=== PATIENT | female | born 1950 | race Hispanic/Latino ===

== ENCOUNTER 2018-02-21 07:11 | Emergency (ER) | payer OTHER ==
--- OUTSIDE RECORDS SUMMARY | 2018-02-21 07:12 | XMS REPORT ---
:1950 [facility] Address [address] [place] [address] Dr. Kaminski [address] [place] [address] Care Team Providers Name Role Phone MICHELE WOOD JR Primary Care Provider Unavailable MICHELE WOOD JR, M.D. Unavailable Unavailable Problems This patient has no known problems. Allergies, Adverse Reactions, Alerts This patient has no known allergies or adverse reactions. Medications This patient has no known medications.
--- OUTSIDE RECORDS SUMMARY | 2018-02-21 07:12 | XMS REPORT | Clinical Summary ---
:1950 Author Organization [facility] Address [address] [place] [address] Care Team Providers Name Role Phone Jonah Eisenberg MD Primary Care Provider Allergies No Known Allergies Medications Medication Sig Dispensed Refills Start Date End Date Status ALPRAZolam (XANAX) as needed. 0 06/25/2017 Active 0.5 MG tablet levothyroxine 0 05/27/2017 Active (SYNTHROID, LEVOXYL) 50 mcg tablet zolpidem (AMBIEN) 5 0 06/11/2017 Active MG tablet venlafaxine XR Take 150 mg 0 Active (EFFEXOR-XR) 150 MG by mouth 2 24 hr capsule (two) times a day. ziprasidone (GEODON) Take 20 mg 0 02/06/2018 Discontinued 20 MG capsule by mouth 2 (two) times a day with meals. Active Problems No known active problems Encounters Date Type Specialty Care Team Description 02/06/2018 Office Visit Neurology Enoch Stratton MD Tremor (Primary Dx); Drug-induced movement disorder; Extrapyramidal movement disorder, drug-induced; Hypertension, unspecified type 09/25/2017 Office Visit Orthopedic Surgery Giovanny Avila Strain of left rotator MD Mirna cuff capsule, initial encounter (Primary Dx) 07/29/2017 Hospital Encounter Radiology Giovanny Avila Acute pain of left MD Mirna shoulder 06/26/2017 Office Visit Orthopedic Surgery Giovanny Avila Strain of left rotator cuff capsule, initial encounter (Primary Dx); MD Mirna Acute pain of left knee; Acute pain of left shoulder 06/13/2017 Abstract Orthopedic Surgery Giovanny Avila MD 06/11/2017 Abstract Orthopedic Surgery Giovanny Avila MD after 02/20/2017 Social History Tobacco Use Types Packs/Day Years Used Date Never Smoker Smokeless Tobacco: Never Used Alcohol Use Drinks/Week oz/Week Comments No Alcohol Habits Answer Date Recorded How often do you have a drink containing alcohol? Never 02/06/2018 How many drinks containing alcohol do you have on a typical Not asked day when you are drinking? How often do you have six or more drinks on one occasion? Not asked Sex Assigned at Date Recorded Not on file Job Start Date Occupation Industry Not on file Not on file Not on file Travel History Travel Start Travel End No recent travel history available. 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 Plan of Treatment Date Type Specialty Care Team Description 04/09/2018 Office Visit Neurology Enoch Stratton MD [address] [facility] [address] [place] [address] [phone] Health Maintenance Due Date Last Done Comments CERVICAL CANCER SCREENING 1973 BREAST CANCER SCREENING 2002 COLON CANCER SCREENING 2002 SHINGLES VACCINES (1 of 2) 2002 PNEUMOCOCCAL POLYSACCHARIDE VACCINE AGE 65 AND OVER 2017 PNEUMOCOCCAL-13 2017 INFLUENZA VACCINE 09/25/2017 Procedures Procedure Name Priority Date/Time Associated Diagnosis Comments MRI SHOULDER WO Routine 07/29/2017 3:25 PM Acute pain of left Results for this CONTRAST LEFT CDT shoulder procedure are in the results section. XR SHOULDER 2+ VW Routine 06/26/2017 1:49 PM Acute pain of left Results for this LEFT CDT knee procedure are in the results section. after 02/20/2017 Results MRI Shoulder Wo Contrast Left (07/29/2017 3:25 PM CDT) Narrative Performed At EXAMINATION:MRI SHOULDER WO CONTRAST LEFT HM [facility] CLINICAL HISTORY:M25.512 Pain in left shoulder, SHOULDER PAINPRIOR ARTHROPLASTYROTATOR CUFF TEAR SUSPECTEDXRAY NONDIAGNOSTIC TECHNIQUE:Multiplanar multisequence MR imaging of the shoulder was performed without contrast. COMPARISON:Left shoulder radiographs dated 06/26/2017 FINDINGS: 1. Rotator cuff: Diffuse rotator cuff tendinopathy which appears diffusely attenuated at the level of the footprint. There is a high-grade near full- thickness tear of the entirety of the supraspinatus footprint with with multifocal sites of full-thickness perforation. At the sites of full-thickness perforation. The torn articular surface fibers are retracted medially from the footprint by approximately 1 cm. There is partial thickness articular tearing extending into the anterior infraspinatus footprint without evidence for full-thickness component. 2. Bursa: Marked subacromial subdeltoid bursitis. 3. Biceps tendon: Extra-articular dislocation of the biceps tendon from the bicipital groove with a split tear of the proximal vertical segment. There is no evidence of a high-grade some scattered tear. The horizontal intra-articular segment is partially torn. 4. Labrum: Degenerative nondisplaced posterosuperior labral tear. 5. Acromioclavicular joint: Type II acromion process. Moderate acromioclavicular osteoarthrosis. 6. Glenohumeral joint: Intact. Satisfactory alignment. Osseous glenoid intact. 7. Articular cartilage: Mild glenohumeral osteoarthrosis without evidence of a focal site of grade IV chondromalacia. 8. Joint Fluid:Small joint effusion. Mild synovitis. 9. Bone marrow: No suspicious marrow edema is seen. No evidence of pathologic marrow replacement. There is some cystic change in the lesser tuberosity. 10. Soft tissues: No significant supraspinatus atrophy. There is fatty replacement and atrophy of teres minor. IMPRESSION: 1.Diffusely attenuated supraspinatus footprint involving the entirety of the supraspinatus with with multifocal sites of full-thickness perforation and associated severe subacromial subdeltoid bursitis. 2.Complete dislocation of the biceps tendon from the bicipital groove with a split tear of the distal horizontal segment and proximal vertical segment with associated extra-articular tenosynovitis. 3.Subscapularis tendinopathy with narrowing of the coracohumeral interval and cystic change of the lesser tuberosity suggestive of subcoracoid impingement. 4.Degenerative nondisplaced posterosuperior labral tear. 5.Additional findings as above. [id number] Procedure Note Hm Interface, Radiology Results Incoming - 07/29/2017 4:16 PM CDT EXAMINATION: MRI SHOULDER WO CONTRAST LEFT CLINICAL HISTORY: M25.512 Pain in left shoulder, SHOULDER PAIN PRIOR ARTHROPLASTY ROTATOR CUFF TEAR SUSPECTED XRAY NONDIAGNOSTIC TECHNIQUE: Multiplanar multisequence MR imaging of the shoulder was performed without contrast. COMPARISON: Left shoulder radiographs dated 06/26/2017 FINDINGS: 1. Rotator cuff: Diffuse rotator cuff tendinopathy which appears diffusely attenuated at the level of the footprint. There is a high-grade near full- thickness tear of the entirety of the supraspinatus footprint with with multifocal sites of full-thickness perforation. At the sites of full-thickness perforation. The torn articular surface fibers are retracted medially from the footprint by approximately 1 cm. There is partial thickness articular tearing extending into the anterior infraspinatus footprint without evidence for full-thickness component. 2. Bursa: Marked subacromial subdeltoid bursitis. 3. Biceps tendon: Extra-articular dislocation of the biceps tendon from the bicipital groove with a split tear of the proximal vertical segment. There is no evidence of a high-grade some scattered tear. The horizontal intra-articular segment is partially torn. 4. Labrum: Degenerative nondisplaced posterosuperior labral tear. 5. Acromioclavicular joint: Type II acromion process. Moderate acromioclavicular osteoarthrosis. 6. Glenohumeral joint: Intact. Satisfactory alignment. Osseous glenoid intact. 7. Articular cartilage: Mild glenohumeral osteoarthrosis without evidence of a focal site of grade IV chondromalacia. 8. Joint Fluid:Small joint effusion. Mild synovitis. 9. Bone marrow: No suspicious marrow edema is seen. No evidence of pathologic marrow replacement. There is some cystic change in the lesser tuberosity. 10. Soft tissues: No significant supraspinatus atrophy. There is fatty replacement and atrophy of teres minor. IMPRESSION: 1. Diffusely attenuated supraspinatus footprint involving the entirety of the supraspinatus with with multifocal sites of full-thickness perforation and associated severe subacromial subdeltoid bursitis. 2. Complete dislocation of the biceps tendon from the bicipital groove with a split tear of the distal horizontal segment and proximal vertical segment with associated extra-articular tenosynovitis. 3. Subscapularis tendinopathy with narrowing of the coracohumeral interval and cystic change of the lesser tuberosity suggestive of subcoracoid impingement. 4. Degenerative nondisplaced posterosuperior labral tear. 5. Additional findings as above. [id number] Performing Organization Address City/[facility] Phone Number [facility] [address] [place] [address] XR Shoulder 2+ Vw Left (06/26/2017 1:49 PM CDT) Narrative Performed At No jose or soft tissue abnormality [employer] Performing Organization Address [facility] Phone Number [facility] [address] [place] [address] after 02/20/2017 Insurance Payer Benefit Plan / Group Subscriber ID Type Phone Address [facility] xxxxxxxxx O Advance Directives Patient has advance care planning documents on file. For more information, please contact:Rasheed Wy[address] [place] [phone]
--- NOTE | 2018-02-21 07:47 | EDPHYS ---
Physician Documentation [facility] Name: Luan Echols Age: 67 yrs Sex: Female : 1950 Arrival Date: 02/21/2018 Time: 07:15 Bed 14 Private MD: Jonah Eisenberg ED Physician Alexandro Cast HPI: 02/21 07:40 This 67 yrs old Female presents to ER via Ambulatory with complaints of cassandra Redness of Eye. 07:40 The patient is experiencing matting or discharge, pain, redness, The patient sustained cassandra Unknown. Onset: The symptoms/episode began/occurred 2 week(s) ago. Duration: the symptoms are continuous. Aggravated by blinking, closing eye, pressure, rubbing, Alleviated by nothing. Associated signs and symptoms: Pertinent positives: None. Severity of symptoms: At their worst the symptoms were mild in the emergency department the symptoms are unchanged. The patient has not experienced similar symptoms in the past. Historical: - Allergies: 07:31 No Known Allergies; ss - Home Meds: 07:31 Effexor XR 150 mg Oral cp24 1 cap once daily [Active]; ss - PMHx: 07:31 Depression; ss - PSHx: 07:31 None; ss - Immunization history:: Adult Immunizations up to date. - Social history:: Smoking status: Patient/guardian denies using tobacco. - Ebola Screening: : Patient denies exposure to infectious person Patient denies travel to an Ebola-affected area in the 21 days before illness onset. - Family history:: not pertinent. ROS: 07:40 Constitutional: Negative for fever, chills, and weight loss, ENT: Negative for injury, cassandra pain, and discharge, Neck: Negative for injury, pain, and swelling, Cardiovascular: Negative for chest pain, palpitations, and edema, Respiratory: Negative for shortness of breath, cough, wheezing, and pleuritic chest pain, Abdomen/GI: Negative for abdominal pain, nausea, vomiting, diarrhea, and constipation, Back: Negative for injury and pain, MS/Extremity: Negative for injury and deformity, Skin: Negative for injury, rash, and discoloration, Neuro: Negative for headache, weakness, numbness, tingling, and seizure, Psych: Negative for depression, anxiety, suicide ideation, homicidal ideation, and hallucinations, Allergy/Immunology: Negative for hives, rash, and allergies, Endocrine: Negative for neck swelling, polydipsia, polyuria, polyphagia, and marked weight changes, Hematologic/Lymphatic: Negative for swollen nodes, abnormal bleeding, and unusual bruising. Exam: 07:40 Constitutional: This is a well developed, well nourished patient who is awake, alert, cassandra and in no acute distress. Head/Face: Normocephalic, atraumatic. ENT: Nares patent. No nasal discharge, no septal abnormalities noted. Tympanic membranes are normal and external auditory canals are clear. Oropharynx with no redness, swelling, or masses, exudates, or evidence of obstruction, uvula midline. Mucous membranes moist. Neck: Trachea midline, no thyromegaly or masses palpated, and no cervical lymphadenopathy. Supple, full range of motion without nuchal rigidity, or vertebral point tenderness. No Meningismus. Chest/axilla: Normal chest wall appearance and motion. Nontender with no deformity. No lesions are appreciated. Cardiovascular: Regular rate and rhythm with a normal S1 and S2. No gallops, murmurs, or rubs. Normal PMI, no JVD. No pulse deficits. Respiratory: Lungs have equal breath sounds bilaterally, clear to auscultation and percussion. No rales, rhonchi or wheezes noted. No increased work of breathing, no retractions or nasal flaring. Abdomen/GI: Soft, non-tender, with normal bowel sounds. No distension or tympany. No guarding or rebound. No evidence of tenderness throughout. Back: No spinal tenderness. No costovertebral tenderness. Full range of motion. Skin: Warm, dry with normal turgor. Normal color with no rashes, no lesions, and no evidence of cellulitis. MS/ Extremity: Pulses equal, no cyanosis. Neurovascular intact. Full, normal range of motion. Neuro: Awake and alert, GCS 15, oriented to person, place, time, and situation. Cranial nerves II-XII grossly intact. Motor strength 5/5 in all extremities. Sensory grossly intact. Cerebellar exam normal. Normal gait. Psych: Awake, alert, with orientation to person, place and time. Behavior, mood, and affect are within normal limits. 07:40 Eyes: Periorbital structures: appear normal, no acute changes, cellulitis, is not appreciated, erythema, is not appreciated, swelling, is not appreciated, Pupils: no acute changes, equal, round, and reactive to light and accomodation, Extraocular movements: no acute changes, Conjunctiva: injected, Corneas: are normal, no acute changes, abrasion, is not appreciated, Anterior chamber: normal, Lids and lashes: mostly removed. Vital Signs: 07:31 BP 175 / 105; Pulse 77; Resp 16; Temp 97.8(TE); Pulse Ox 98% on R/A; Weight 47.63 kg; ss Height 4 ft. 11 in. (149.86 cm); Pain 5/10; 08:12 BP 169 / 87; Pulse 74; Resp 18; Temp 97.5; Pulse Ox 99% on R/A; ph 07:31 Body Mass Index 21.21 (47.63 kg, 149.86 cm) ss MDM: 07:32 Patient medically screened. [facility] 07:44 Data reviewed: vital signs, nurses notes. [facility] Administered Medications: 08:00 Drug: Maxitrol 2 drops Route: Ophthalmic; Site: right eye; ph 08:12 Follow up: Response: No adverse reaction ph Disposition: 02/21/18 07:47 Discharged to Home. Impression: Conjunctivitis. - Condition is Stable. - Discharge Instructions: Allergic Conjunctivitis, Adult, Allergic Conjunctivitis, Knso-uk-Mssk. - Prescriptions for Maxitrol 3.5mg/mL- 10,000 unit/mL-0.1 % Ophthalmic drops,suspension - instill 1 drop by OPHTHALMIC route every 3-4 hours; 10 milliliter. - Medication Reconciliation Form, Thank You Letter, Antibiotic Education, Prescription Opioid Use form. - Follow up: Jonah Eisenberg MD; When: 2 - 3 days; Reason: Recheck today's complaints, Continuance of care, Re-evaluation by your physician. - Problem is new. - Symptoms have improved. Signatures: Alexandro Cast MD MD cha Smirch, Shelby RN RN Marissa Landry RN RN ph Corrections: (The following items were deleted from the chart) 08:13 07:47 02/21/2018 07:47 Discharged to Home. Impression: Conjunctivitis. Condition is ph Stable. Forms are Medication Reconciliation Form, Thank You Letter, Antibiotic Education, Prescription Opioid Use. Follow up: Jonah Eisenberg; When: 2 - 3 days; Reason: Recheck today's complaints, Continuance of care, Re-evaluation by your physician. Problem is new. Symptoms have improved. cassandra
--- NOTE | 2018-02-21 07:47 | ER ---
Nurse's Notes [facility] Name: Luan Echols Age: 67 yrs Sex: Female : 1950 Arrival Date: 02/21/2018 Time: 07:15 Bed 14 Private MD: Jonah Eisenberg Diagnosis: Conjunctivitis Presentation: 02/21 07:17 Presenting complaint: Patient states: redness to L eye x 1 day. Woke up this morning ss with eye matted shut with purulent drainage. Pt reports that she typically gets false eyelashes and had a hard time removing them. Transition of care: patient was not received from another setting of care. Onset of symptoms was February 20, 2018. Risk Assessment: Do you want to hurt yourself or someone else? Patient reports no desire to harm self or others. Initial Sepsis Screen: Does the patient meet any 2 criteria? No. Patient's initial sepsis screen is negative. Does the patient have a suspected source of infection? No. Patient's initial sepsis screen is negative. Care prior to arrival: None. 07:17 Method Of Arrival: Ambulatory ss 07:17 Acuity: MAGDA 5 ss Historical: - Allergies: 07:31 No Known Allergies; ss - Home Meds: 07:31 Effexor XR 150 mg Oral cp24 1 cap once daily [Active]; ss - PMHx: 07:31 Depression; ss - PSHx: 07:31 None; ss - Immunization history:: Adult Immunizations up to date. - Social history:: Smoking status: Patient/guardian denies using tobacco. - Ebola Screening: : Patient denies exposure to infectious person Patient denies travel to an Ebola-affected area in the 21 days before illness onset. - Family history:: not pertinent. Screenin:34 Abuse screen: Denies threats or abuse. Denies injuries from another. Nutritional ss screening: No deficits noted. Tuberculosis screening: No symptoms or risk factors identified. Never had TB. Fall Risk None identified. Assessment: 07:34 General: Appears in no apparent distress. comfortable, Behavior is calm, cooperative. ss Pain: Complains of pain in left eye Pain currently is 5 out of 10 on a pain scale. Quality of pain is described as "like little pin pricks." Pain began yesterday Is continuous. Neuro: Level of Consciousness is awake, alert, obeys commands, Oriented to person, place, time, situation, Speech is normal. Cardiovascular: Capillary refill < 3 seconds is brisk in bilateral fingers. Respiratory: Airway is patent Respiratory effort is even, unlabored. EENT: Eyes are tearing on outer aspect of conjuctiva of left eye with exudate noted from inner aspect of conjunctiva of left eye Sclera/Cornea are reddened in outer aspect of conjuctiva of left eye and inner aspect of conjunctiva of left eye Nares are clear Oral mucosa is moist. Throat is clear. Derm: Skin is intact, is healthy with good turgor, Skin is dry, Skin is pink, warm \\T\\ dry. normal. Musculoskeletal: Circulation, motion, and sensation intact. Range of motion: intact in all extremities, Swelling absent. Vital Signs: 07:31 BP 175 / 105; Pulse 77; Resp 16; Temp 97.8(TE); Pulse Ox 98% on R/A; Weight 47.63 kg; Height 4 ft. 11 in. (149.86 cm); Pain 5/10; 08:12 BP 169 / 87; Pulse 74; Resp 18; Temp 97.5; Pulse Ox 99% on R/A; ph 07:31 Body Mass Index 21.21 (47.63 kg, 149.86 cm) ED Course: 07:15 Patient arrived in ED. mr 07:16 Jonah Eisenberg MD is Private Physician. mr 07:23 Marissa Landry, RN is Primary Nurse. ph 07:30 Triage completed. ss 07:31 Arm band placed on right wrist. ss 07:32 Alexandro Cast MD is Attending Physician. cassandra 07:34 Patient has correct armband on for positive identification. Bed in low position. Call ss light in reach. 07:34 Patient maintains SpO2 saturation greater than 95% on room air. ss 07:46 Jonah Eisenberg MD is Referral Physician. cassandra 07:51 Marissa Landry, RN is Primary Nurse. ph 08:12 No provider procedures requiring assistance completed. Patient did not have IV access ph during this emergency room visit. Administered Medications: 08:00 Drug: Maxitrol 2 drops Route: Ophthalmic; Site: right eye; ph 08:12 Follow up: Response: No adverse reaction ph Outcome: 07:47 Discharge ordered by . cassandra 08:12 Discharged to home ambulatory. ph 08:12 Condition: good 08:12 Discharge instructions given to patient, Instructed on discharge instructions, follow up and referral plans. medication usage, Demonstrated understanding of instructions, follow-up care, medications, Prescriptions given X 1. 08:13 Patient left the ED. ph Signatures: Alexandro Cast MD MD cha Rivera, Mary mr Smirch, Shelby, JAVIER RN Marissa Landry RN RN ph
[2018-02-21] MEDS ORDERED: NEO/POLY/DEX OPTH 5 ML BOT ONE (08:05)
== END 2018-02-21 08:13 | disposition home or self-care (01) ==
LOC: ER 07:11
DX: H10.9 Unspecified conjunctivitis (principal); F32.9 Major depressive disorder, single episode, unspecified; Z79.899 Other long term (current) drug therapy
CPT/HCPCS: 99284

== ENCOUNTER 2018-03-01 12:20 | Emergency (ER) | payer OTHER ==
--- OUTSIDE RECORDS SUMMARY | 2018-03-01 12:23 | XMS REPORT | Clinical Summary ---
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 [address] [place] [address] [phone] Health Maintenance Due Date Last Done Comments [...] procedure are in the results section. after 02/28/2017 Results MRI Shoulder Wo Contrast Left (07/29/2017 [...] posterosuperior labral tear. 5.Additional findings as above. [facility]-[id number] Procedure Note Hm Interface, Radiology Results Incoming [...] labral tear. 5. Additional findings as above. [facility]-[id number] Performing Organization Address City/[facility] Phone Number [employer] [address] [place] [address] XR Shoulder 2+ Vw Left (06/26/2017 1:49 PM CDT) Narrative Performed At No jose or soft tissue abnormality [employer] Performing Organization Address [facility] Phone Number [employer] [address] [place] [address] after 02/28/2017 Insurance Payer Benefit Plan / Group Subscriber ID Type Phone Address [facility] xxxxxxxxx O Advance Directives Patient has advance care planning documents on file. For more information, please contact:Rasheed Key[address] [place] [phone]
--- OUTSIDE RECORDS SUMMARY | 2018-03-01 12:24 | XMS REPORT ---
:1950 [facility] Address [address] [place] [address] Dr. Kaminski [address] [place] [address] Care Team Providers Name Role Phone MICHELE WOOD JR Primary Care Provider Unavailable MICHELE WOOD JR, M.D. Unavailable Unavailable Problems This patient has no known problems. Allergies, Adverse Reactions, Alerts This patient has no known allergies or adverse reactions. Medications This patient has no known medications.
[2018-03-01] MEDS ORDERED: HALOPERIDOL LACT 5 MG/ML INJ ONE (13:45)
[2018-03-01] MEDS ORDERED: DIPHENHYDRAMINE 50 MG/ML VIAL ONE (13:45)
[2018-03-01 13:48] LABS: Absolute Lymphocytes (CBC) 2.2 K/uL (0.7-4.9); Absolute Monocytes 0.4 K/uL (0.1-1.3); Absolute Neutrophil 3.5 K/uL (1.8-8.0); Barbiturates NEGATIVE (NEGATIVE); Basophils % 0.6 % (0-1.3); Benzodiazepines NEGATIVE (NEGATIVE); Cocaine NEGATIVE (NEGATIVE); Eosinophils % 0.7 % (0-4.4); Hematocrit 45.1 % (36.0-45.0); Lymphocytes % 36.1 % (15.3-44.8); METHAMPHETAM NEGATIVE (NEGATIVE); MPV 8.7 fL (7.6-11.3); Methadone NEGATIVE (NEGATIVE); Monocytes % 5.8 % (3.3-12.3); Opiates NEGATIVE (NEGATIVE); Phencyclidine NEGATIVE (NEGATIVE); RBC Red Blood Cell Count 5.27 M/uL (3.86-4.86); THC Cannibis NEGATIVE (NEGATIVE)
[2018-03-01 13:52] LABS: Protime INR 1.01
[2018-03-01 14:12] LABS: Urine Blood TRACE (NEG); Urine Glucose NEGATIVE (NEG); Urine Protein NEGATIVE (NEG)
[2018-03-01] MEDS ORDERED: ACETAMINOPHEN 325 MG TABLET ONE (15:02)
[2018-03-01 15:48] LABS: ALT/SGPT 40 U/L (12-78); AST/SGOT 31 U/L (15-37); Albumin 4.5 g/dL (3.4-5.0); Alkaline Phosphatase 99 U/L (45-117); BUN Blood Urea Nitrogen 16 mg/dL (7-18); Bicarbonate 28 mmol/L (21-32); Bilirubin Direct 0.1 mg/dL (0-0.2); Bilirubin Total 0.6 mg/dL (0.2-1.0); Glucose Level 110 mg/dL (74-106); Potassium 3.7 mmol/L (3.5-5.1); Protein, Total 8.8 g/dL (6.4-8.2); Sodium Level 138 mmol/L (136-145)
--- NOTE | 2018-03-01 18:10 | EDPHYS ---
Physician Documentation [facility] Name: Luan Echols Age: 67 yrs Sex: Female : 1950 Arrival Date: 03/01/2018 Time: 12:24 Bed 14 Private MD: Jonah Eisenberg ED Physician Alexandro Cast HPI: 03/01 15:10 This 67 yrs old Female presents to ER via Wheelchair with complaints of Psych jr8 Problem. 15:10 The patient presents to the emergency department with depression, psychosis, has jr8 delusions. Onset: The symptoms/episode began/occurred gradually, 2 week(s) ago, and became worse and became persistent. Past psychiatric history: Prior diagnosis: bipolar disorder, depression, Psychiatric medications include: effexor. Associated signs and symptoms: The patient has no apparent associated signs or symptoms. Severity of symptoms: At their worst the symptoms were moderate in the emergency department the symptoms are unchanged. The patient has experienced a previous episode. Patient recently taken off of her Geodon for possible tremors. Only on effexor now. Had been diagnosed with Bipolar about 16 years ago. Since off of Geodon has been in manic phase. Family stated that she keeps telling them that she does not want to live. Having racing thoughts. Has not slept in over a week. . Historical: - Allergies: 12:38 No Known Allergies; aj - Home Meds: 12:38 cholesterol pill, unknown name [Active]; Effexor XR 75 mg oral cp24 [Active]; aj levothyroxine oral [Active]; - PMHx: 12:38 Depression; High Cholesterol; Hypothyroidism; Bipolar disorder; aj - PSHx: 12:38 None; aj - Immunization history:: Adult Immunizations up to date. - Social history:: Smoking status: Patient/guardian denies using tobacco. - Ebola Screening: : Patient negative for fever greater than or equal to 101.5 degrees Fahrenheit, and additional compatible Ebola Virus Disease symptoms Patient denies exposure to infectious person Patient denies travel to an Ebola-affected area in the 21 days before illness onset No symptoms or risks identified at this time. ROS: 15:10 Eyes: Negative for injury, pain, redness, and discharge, ENT: Negative for injury, jr8 pain, and discharge, Neck: Negative for injury, pain, and swelling, Cardiovascular: Negative for chest pain, palpitations, and edema, Respiratory: Negative for shortness of breath, cough, wheezing, and pleuritic chest pain, Abdomen/GI: Negative for abdominal pain, nausea, vomiting, diarrhea, and constipation, Back: Negative for injury and pain, MS/Extremity: Negative for injury and deformity, Skin: Negative for injury, rash, and discoloration, Neuro: Negative for headache, weakness, numbness, tingling, and seizure. 15:10 Psych: Positive for depression, suicidal ideation. Exam: 15:10 Eyes: Pupils equal round and reactive to light, extra-ocular motions intact. Lids and jr8 lashes normal. Conjunctiva and sclera are non-icteric and not injected. Cornea within normal limits. Periorbital areas with no swelling, redness, or edema. ENT: Nares patent. No nasal discharge, no septal abnormalities noted. Tympanic membranes are normal and external auditory canals are clear. Oropharynx with no redness, swelling, or masses, exudates, or evidence of obstruction, uvula midline. Mucous membranes moist. Neck: Trachea midline, no thyromegaly or masses palpated, and no cervical lymphadenopathy. Supple, full range of motion without nuchal rigidity, or vertebral point tenderness. No Meningismus. Cardiovascular: Regular rate and rhythm with a normal S1 and S2. No gallops, murmurs, or rubs. Normal PMI, no JVD. No pulse deficits. Respiratory: Lungs have equal breath sounds bilaterally, clear to auscultation and percussion. No rales, rhonchi or wheezes noted. No increased work of breathing, no retractions or nasal flaring. Abdomen/GI: Soft, non-tender, with normal bowel sounds. No distension or tympany. No guarding or rebound. No evidence of tenderness throughout. Back: No spinal tenderness. No costovertebral tenderness. Full range of motion. Skin: Warm, dry with normal turgor. Normal color with no rashes, no lesions, and no evidence of cellulitis. MS/ Extremity: Pulses equal, no cyanosis. Neurovascular intact. Full, normal range of motion. Neuro: Awake and alert, GCS 15, oriented to person, place, time, and situation. Cranial nerves II-XII grossly intact. Motor strength 5/5 in all extremities. Sensory grossly intact. Cerebellar exam normal. Normal gait. 15:10 Psych: Behavior/mood is cooperative, suicidal, depressed, Affect is animated, Oriented to person, place, time, Patient having thoughts of suicide. Denies suicidal plan. Judgement / Insight is impaired. Memory is normal. Delusions/hallucinations are not present. Vital Signs: 12:35 BP 182 / 112; Pulse 95; Resp 20; Temp 97.9; Pulse Ox 99% on R/A; Weight 49.9 kg; Height aj 4 ft. 11 in. (149.86 cm); 16:27 BP 142 / 78; Pulse 81; Resp 18; Temp 99.8; Pulse Ox 97% ; md 18:00 BP 139 / 80; Pulse 80; Resp 16 S; Pulse Ox 99% on R/A; jl7 12:35 Body Mass Index 22.22 (49.90 kg, 149.86 cm) aj MDM: 12:41 Patient medically screened. jr8 15:15 Data reviewed: vital signs, nurses notes, lab test result(s). Data interpreted: Pulse jr8 oximetry: on room air is 99 %. Interpretation: normal. Counseling: I had a detailed discussion with the patient and/or guardian regarding: the historical points, exam findings, and any diagnostic results supporting the discharge/admit diagnosis, lab results, the need to transfer to another facility, [facility] does not immediately have the required specialist. 18:08 ED course: Dr. Adames accepted for psych transfer. 03/01 12:41 Order name: Acetaminophen; Complete Time: 15:49 03/01 12:41 Order name: Basic Metabolic Panel; Complete Time: 15:49 03/01 12:41 Order name: CBC with Diff; Complete Time: 14:24 03/01 12:41 Order name: ETOH Level; Complete Time: 14:06 03/01 12:41 Order name: Hepatic Function; Complete Time: 15:49 03/01 12:41 Order name: PT-INR; Complete Time: 14:03/01 12:41 Order name: Ptt, Activated; Complete Time: 14:03/01 12:41 Order name: Salicylate; Complete Time: 14:24 03/01 12:41 Order name: Urine Drug Screen; Complete Time: 14:03/01 12:41 Order name: EKG; Complete Time: 12:42 8 03/01 12:41 Order name: EKG - Nurse/Tech; Complete Time: 14:44 8 03/01 13:44 Order name: Urine Dipstick--Ancillary (enter results); Complete Time: 14:24 ag 03/01 12:41 Order name: IV Saline Lock; Complete Time: 13:42 8 03/01 12:41 Order name: Labs collected and sent; Complete Time: 13:42 8 03/01 12:41 Order name: Urine Dipstick-Ancillary (obtain specimen); Complete Time: 13:39 Administered Medications: 13:43 Drug: Benadryl 50 mg Route: IVP; Site: right antecubital; jl7 14:31 Follow up: Response: No adverse reaction; Marked relief of symptoms jl7 13:44 Drug: HALdol 2 mg Route: IVP; Site: right antecubital; jl7 14:32 Follow up: Response: No adverse reaction; Marked relief of symptoms jl7 Disposition: 03/01/18 18:09 Transfer ordered to Psych Facility. Diagnosis are Bipolar disorder, current episode mixed, moderate, Suicidal ideations. - Reason for transfer: Higher level of care. - Accepting physician is Dr. Adames. - Condition is Stable. - Problem is new. - Symptoms have improved. Addendum: 03/05/2018 08:03 Co-signature as Attending Physician, Alexandro Cast MD I agree with the assessment and c chen plan of care. Signatures: Dispatcher [employer] EDChandni Tan RN Alexandro Ireland MD MD cha Roszak, Josh, PA PA jr8 Manolo Elizabeth RN RN jl7 Corrections: (The following items were deleted from the chart) 03/01 15:15 15:10 Patient recently taken off of her Geodon for possible tremors. Only on effexor jr8 now. Had been diagnosed with Bipolar about 16 years ago. Since off of Geodon has been in manic phase. Family stated that she keeps telling them that she does not want to live. Having racing thoughts and delusions . jr8 19:18 18:09 03/01/2018 18:09 Transfer ordered to Psych Facility. Diagnosis is Bipolar jl7 disorder, current episode mixed, moderate; Suicidal ideations. Reason for transfer: Higher level of care. Accepting physician is Dr. Adames. Condition is Stable. Problem is new. Symptoms have improved. jr8
--- NOTE | 2018-03-01 18:10 | ER ---
Nurse's Notes [facility] Name: Luan Echols Age: 67 yrs Sex: Female : 1950 Arrival Date: 03/01/2018 Time: 12:24 Bed 14 Private MD: Jonah Eisenberg Diagnosis: Bipolar disorder, current episode mixed, moderate;Suicidal ideations Presentation: 03/01 12:35 Presenting complaint: Patient states: "I just need some sleep, I haven't slept in aj days." Patient's family reports she is currently manic and hasn't slept in days. Patient' had recent adjustment to psych meds 3 weeks ago. Transition of care: patient was not received from another setting of care. Onset of symptoms was February 08, 2018. Initial Sepsis Screen: Does the patient meet any 2 criteria? No. Patient's initial sepsis screen is negative. Does the patient have a suspected source of infection? No. Patient's initial sepsis screen is negative. Care prior to arrival: None. 12:35 Method Of Arrival: Wheelchair aj 12:35 Acuity: MAGDA 2 aj 12:35 Risk Assessment: Do you want to hurt yourself or someone else? Other: Patient's family aj reports that she stated that she wanted to kill herself last night by holding a pillow over her face. Triage Assessment: 12:35 General: Appears in no apparent distress. comfortable, Behavior is calm, cooperative, aj appropriate for age. Pain: Denies pain. Neuro: Level of Consciousness is awake, alert, obeys commands, Oriented to person, place, time, situation, Appropriate for age. Respiratory: Airway is patent Respiratory effort is even, unlabored, Respiratory pattern is regular, symmetrical. Derm: Skin is intact, is healthy with good turgor, Skin is pink, warm \\T\\ dry. normal. Historical: - Allergies: 12:38 No Known Allergies; aj - Home Meds: 12:38 cholesterol pill, unknown name [Active]; Effexor XR 75 mg oral cp24 [Active]; aj levothyroxine oral [Active]; - PMHx: 12:38 Depression; High Cholesterol; Hypothyroidism; Bipolar disorder; aj - PSHx: 12:38 None; aj - Immunization history:: Adult Immunizations up to date. - Social history:: Smoking status: Patient/guardian denies using tobacco. - Ebola Screening: : Patient negative for fever greater than or equal to 101.5 degrees Fahrenheit, and additional compatible Ebola Virus Disease symptoms Patient denies exposure to infectious person Patient denies travel to an Ebola-affected area in the 21 days before illness onset No symptoms or risks identified at this time. Screenin:30 Abuse screen: Denies threats or abuse. Denies injuries from another. Nutritional jl7 screening: No deficits noted. Tuberculosis screening: No symptoms or risk factors identified. Fall Risk IV access (20 points). Total Stanley Fall Scale indicates No Risk (0-24 pts). Assessment: 13:30 General: Appears uncomfortable, Behavior is cooperative, anxious. Pain: Complains of jl7 pain in headache Pain currently is 10 out of 10 on a pain scale. Quality of pain is described as throbbing. Neuro: Level of Consciousness is awake, alert, obeys commands, Oriented to person, place, time. Cardiovascular: Patient's skin is warm and dry. Respiratory: Airway is patent Respiratory effort is even, unlabored, Respiratory pattern is regular, symmetrical. GI: No signs and/or symptoms were reported involving the gastrointestinal system. : No signs and/or symptoms were reported regarding the genitourinary system. EENT: No signs and/or symptoms were reported regarding the EENT system. Derm: Skin is pink, warm \\T\\ dry. Musculoskeletal: No signs and/or symptoms reported regarding the musculoskeletal system. 14:32 Reassessment: Pt laying in bed with eye closed, respiration even and unlabored, no jl7 signs of distress noted at this time. Family remain at bedside. 15:30 Reassessment: Patient appears in no apparent distress at this time. No changes from jl7 previously documented assessment. Patient and/or family updated on plan of care and expected duration. Pain level reassessed. Patient is alert, oriented x 3, equal unlabored respirations, skin warm/dry/pink. 16:30 Reassessment: Patient and/or family updated on plan of care and expected duration. Pain jl7 level reassessed. Patient is alert, oriented x 3, equal unlabored respirations, skin warm/dry/pink. 17:30 Reassessment: Patient appears in no apparent distress at this time. Patient and/or jl7 family updated on plan of care and expected duration. Pain level reassessed. Patient is alert, oriented x 3, equal unlabored respirations, skin warm/dry/pink. Vital Signs: 12:35 BP 182 / 112; Pulse 95; Resp 20; Temp 97.9; Pulse Ox 99% on R/A; Weight 49.9 kg; Height aj 4 ft. 11 in. (149.86 cm); 16:27 BP 142 / 78; Pulse 81; Resp 18; Temp 99.8; Pulse Ox 97% ; md 18:00 BP 139 / 80; Pulse 80; Resp 16 S; Pulse Ox 99% on R/A; jl7 12:35 Body Mass Index 22.22 (49.90 kg, 149.86 cm) aj ED Course: 12:24 Patient arrived in ED. mr 12:25 Jonah Eisenberg MD is Private Physician. mr 12:35 Arm band placed on left wrist. Patient placed in an exam room. aj 12:37 Triage completed. aj 12:40 Safety checks: Items removed: yes. Door open/sign placed on door: yes. Family/friend mh5 present: yes. Family/friends encouraged to stay with patient. Sitter present: Yes. 12:41 Cesar Valiente PA is PHCP. jr8 12:41 Alexandro Cast MD is Attending Physician. jr8 12:45 Safety checks: Items removed: yes. Door open/sign placed on door: yes. Family/friend mh5 present: yes. Family/friends encouraged to stay with patient. Sitter present: Yes. 12:45 Safety checks: Items removed:. Patient has correct armband on for positive mh5 identification. Placed in gown. Bed in low position. Side rails up X 1. Adult w/ patient. Warm blanket given. 13:00 Safety checks: Items removed: yes. Door open/sign placed on door: yes. Family/friend mh5 present: yes. Family/friends encouraged to stay with patient. Sitter present: Yes. 13:14 Manolo Elizabeth RN is Primary Nurse. jl7 13:15 Safety checks: Items removed: yes. Door open/sign placed on door: yes. Family/friend mh5 present: yes. Family/friends encouraged to stay with patient. Sitter present: Yes. 13:30 Safety checks: Items removed: yes. Door open/sign placed on door: yes. Family/friend mh5 present: yes. Family/friends encouraged to stay with patient. Sitter present: Yes. 13:30 Initial lab(s) drawn, by me, sent to lab. Inserted saline lock: 20 gauge in right jl7 antecubital area, using aseptic technique. Blood collected. 13:38 Urine collected: clean catch specimen, clear. 5 13:39 Urine Drug Screen Sent. 5 13:42 CBC with Diff Sent. mh5 13:42 ETOH Level Sent. mh5 13:42 Hepatic Function Sent. mh5 13:42 PT-INR Sent. mh5 13:42 Ptt, Activated Sent. 5 13:42 Salicylate Sent. 5 13:45 Safety checks: Items removed: yes. Door open/sign placed on door: yes. Family/friend md present: yes. Sitter present: Yes. 14:00 Safety checks: Items removed: yes. Door open/sign placed on door: yes. Family/friend md present: yes. Family/friends encouraged to stay with patient. Sitter present: Yes. 14:15 Safety checks: Items removed: yes. Door open/sign placed on door: yes. Family/friend md present: yes. Family/friends encouraged to stay with patient. Sitter present: Yes. 14:30 Safety checks: Items removed: yes. Door open/sign placed on door: yes. Family/friend md present: yes. Family/friends encouraged to stay with patient. Sitter present: Yes. 14:45 Safety checks: Items removed: yes. Door open/sign placed on door: yes. Family/friend md present: yes. Family/friends encouraged to stay with patient. Sitter present: Yes. 15:00 Safety checks: Items removed: yes. Door open/sign placed on door: yes. Family/friend md present: yes. Family/friends encouraged to stay with patient. Sitter present: Yes. 15:15 Safety checks: Items removed: yes. Door open/sign placed on door: yes. Family/friend md present: yes. Family/friends encouraged to stay with patient. Sitter present: Yes. Other: patients family brought her food. 15:30 Safety checks: Items removed: yes. Door open/sign placed on door: yes. Family/friend md present: yes. Family/friends encouraged to stay with patient. Sitter present: Yes. 15:45 Safety checks: Items removed: yes. Door open/sign placed on door: yes. Family/friend md present: yes. Family/friends encouraged to stay with patient. Sitter present: Yes. 16:00 Safety checks: Items removed: yes. Door open/sign placed on door: yes. Family/friend md present: yes. Family/friends encouraged to stay with patient. Sitter present: Yes. 16:15 Safety checks: Items removed: yes. Door open/sign placed on door: yes. Family/friend md present: yes. Family/friends encouraged to stay with patient. Sitter present: Yes. 16:30 Safety checks: Items removed: yes. Door open/sign placed on door: yes. Family/friend md present: yes. Family/friends encouraged to stay with patient. Sitter present: Yes. 16:45 Safety checks: Items removed: yes. Door open/sign placed on door: yes. Family/friend md present: yes. Family/friends encouraged to stay with patient. Sitter present: Yes. 17:00 Safety checks: Items removed: yes. Door open/sign placed on door: yes. Family/friend md present: yes. Family/friends encouraged to stay with patient. Sitter present: Yes. 17:15 Safety checks: Items removed: yes. Door open/sign placed on door: yes. Family/friend md present: yes. Family/friends encouraged to stay with patient. Sitter present: Yes. 17:30 Safety checks: Items removed: yes. Door open/sign placed on door: yes. Family/friend md present: yes. Family/friends encouraged to stay with patient. Sitter present: Yes. 17:45 Safety checks: Items removed: yes. Door open/sign placed on door: yes. Family/friend md present: yes. Family/friends encouraged to stay with patient. Sitter present: Yes. 18:00 Safety checks: Items removed: yes. Door open/sign placed on door: yes. Family/friend md present: yes. Family/friends encouraged to stay with patient. Sitter present: Yes. 18:15 Safety checks: Items removed: yes. Door open/sign placed on door: yes. Family/friend md present: yes. Family/friends encouraged to stay with patient. Sitter present: Yes. 18:30 Safety checks: Items removed: yes. Door open/sign placed on door: yes. Family/friend present: yes. Family/friends encouraged to stay with patient. Sitter present: Yes. 18:30 Diet: Patient given a regular meal tray. Patient given water. Tolerated well. 18:45 Safety checks: Items removed: yes. Door open/sign placed on door: yes. Family/friend present: yes. Family/friends encouraged to stay with patient. Sitter present: Yes. 18:45 No provider procedures requiring assistance completed. IV discontinued, intact, jl7 bleeding controlled, No redness/swelling at site. Pressure dressing applied. Administered Medications: 13:43 Drug: Benadryl 50 mg Route: IVP; Site: right antecubital; jl7 14:31 Follow up: Response: No adverse reaction; Marked relief of symptoms jl7 13:44 Drug: HALdol 2 mg Route: IVP; Site: right antecubital; jl7 14:32 Follow up: Response: No adverse reaction; Marked relief of symptoms jl7 Outcome: 18:09 ER care complete, transfer ordered by . jrSeven 19:18 Patient left the ED. jl7 Signatures: Chandni Santa, RN RN Senait Olivarez mr SteffanieCesar PA PA jr8 Linda Flaherty Jahala, RN RN jl7 Linda Cortes md Corrections: (The following items were deleted from the chart) 12:39 12:35 Risk Assessment: Do you want to hurt yourself or someone else? Patient reports no aj desire to harm self or others. aj 12:39 12:35 Acuity: MAGDA 4 aj aj 16:33 15:15 Safety checks: Items removed: yes. Door open/sign placed on door: yes. Family/friend present: yes. Family/friends encouraged to stay with patient. Sitter present: Yes.
--- NOTE | 2018-03-02 13:32 | EKG ---
Test Date: 2018-03-01 Test Time: 13:48:50 Automatic Clipper: LUCIANO MEASUREMENT RESULTS: Intervals: Rate: 87 [place]: 120 QRSD: 78 QT: 416 QTc: 500 [place]: P: 6 [place]: 120 QRS: 10 T: 90 INTERPRETIVE STATEMENTS: Normal sinus rhythm Nonspecific T wave abnormality Prolonged QT Abnormal ECG Compared to ECG 06/25/2000 17:59:00 T-wave abnormality now present Prolonged QT interval now present Sinus bradycardia no longer present Electronically Signed On 03-02-18 13:22:01 E BUSINESS PROJECT MANAGER by Sage Vasquez
== END 2018-03-01 19:18 ==
LOC: ER 12:20
DX: F31.62 Bipolar disorder, current episode mixed, moderate (principal); E78.00 Pure hypercholesterolemia, unspecified; E03.9 Hypothyroidism, unspecified; F32.9 Major depressive disorder, single episode, unspecified
CPT/HCPCS: 36415; 80048; 80076; 80307 ×8; 80320; 80329 ×2; 81003; 85025; 85610; 85730; 93005; 96374; 96375; 99283; J1630

== ENCOUNTER 2018-03-11 17:51 | Emergency (ER) | payer OTHER ==
--- OUTSIDE RECORDS SUMMARY | 2018-03-11 17:53 | XMS REPORT | Clinical Summary ---
:1950 Author Organization [facility] Address [address] [place] [address] Care Team Providers Name Role Phone Jonah [...] Encounters Date Type Specialty Care Team Description 03/05/2018 - Emergency Emergency Medicine Nawaf Oneil Fall, initial encounter (Primary Dx); 03/06/2018 MD Juan Daniel Contusion of scalp, initial encounter 02/06/2018 Office Visit Neurology Enoch Stratton MD Tremor (Primary Dx); Drug-induced movement disorder; Extrapyramidal movement disorder, drug-induced; Hypertension, unspecified type 09/25/2017 Office Visit Orthopedic Surgery [place] Strain of left rotator Giovanny Bradley MD cuff capsule, initial encounter (Primary Dx) 07/29/2017 Hospital Encounter Radiology [place], Acute pain of left Giovanny Bradley MD shoulder 06/26/2017 Office Visit Orthopedic Surgery [place], Strain of left rotator cuff capsule, initial encounter (Primary Dx); Giovanny Bradley MD Acute pain of left knee; Acute pain of left shoulder 06/13/2017 Abstract Orthopedic Surgery Giovanny Avila MD 06/11/2017 Abstract Orthopedic Surgery Giovanny Avila MD after 03/10/2017 Social History Tobacco Use Types Packs/Day Years Used Date Never Smoker Smokeless Tobacco: Never Used Alcohol Use Drinks/Week oz/Week Comments Defer Alcohol Habits Answer Date Recorded How often [...] Vital Sign Reading Time Taken Blood Pressure 136/70 03/06/2018 2:30 AM BLOOD BANK TECHNOLOGIST Pulse 77 03/06/2018 2:30 AM BLOOD BANK TECHNOLOGIST Temperature 36.7 C (98 F) 03/06/2018 2:30 AM BLOOD BANK TECHNOLOGIST Respiratory Rate 20 03/06/2018 2:30 AM BLOOD BANK TECHNOLOGIST Oxygen Saturation 99% 03/06/2018 2:30 AM BLOOD BANK TECHNOLOGIST Inhaled Oxygen Concentration - - Weight 51.7 kg (114 lb) 02/06/2018 9:17 AM BLOOD BANK TECHNOLOGIST Height 162.6 cm (5' 4") 03/05/2018 10:54 PM BLOOD BANK TECHNOLOGIST Body Mass Index 23.03 02/06/2018 9:17 AM BLOOD BANK TECHNOLOGIST Plan of Treatment Date Type Specialty Care Team Description 04/09/2018 Office Visit Neurology Enoch Stratton MD [address] [facility] [address] [place], [place] [id number] Health Maintenance Due Date Last Done Comments CERVICAL CANCER SCREENING 1973 BREAST CANCER SCREENING 2002 COLON CANCER SCREENING 2002 SHINGLES VACCINES (1 of 2) 2002 PNEUMOCOCCAL POLYSACCHARIDE VACCINE AGE 65 AND OVER 2017 PNEUMOCOCCAL-13 2017 INFLUENZA VACCINE 09/25/2017 Procedures Procedure Name Priority Date/Time Associated Comments Diagnosis TROPONIN Routine 03/05/2018 11:30 Results for this PM BLOOD BANK TECHNOLOGIST procedure are in the results section. B NATRIURETIC PEPTIDE Routine 03/05/2018 11:30 Results for this PM BLOOD BANK TECHNOLOGIST procedure are in the results section. CREATINE KINASE, TOTAL Routine 03/05/2018 11:30 Results for this (CPK) PM BLOOD BANK TECHNOLOGIST procedure are in the results section. ESTIMATED GFR Routine 03/05/2018 11:30 Results for this PM BLOOD BANK TECHNOLOGIST procedure are in the results section. COMPREHENSIVE METABOLIC Routine 03/05/2018 11:30 Results for this PANEL PM BLOOD BANK TECHNOLOGIST procedure are in the results section. PARTIAL THROMBOPLASTIN Routine 03/05/2018 11:30 Results for this TIME (PTT) PM BLOOD BANK TECHNOLOGIST procedure are in the results section. PROTHROMBIN TIME WITH Routine 03/05/2018 11:30 Results for this INR PM BLOOD BANK TECHNOLOGIST procedure are in the results section. HC COMPLETE BLD COUNT Routine 03/05/2018 11:30 Results for this W/AUTO DIFF PM BLOOD BANK TECHNOLOGIST procedure are in the results section. ECG 12-LEAD STAT 03/05/2018 11:29 Results for this PM BLOOD BANK TECHNOLOGIST procedure are in the results section. CT CERVICAL SPINE WO STAT 03/05/2018 11:20 Results for this CONTRAST PM BLOOD BANK TECHNOLOGIST procedure are in the results section. CT HEAD WO CONTRAST STAT 03/05/2018 11:20 Results for this PM BLOOD BANK TECHNOLOGIST procedure are in the results section. MRI SHOULDER WO Routine 07/29/2017 3:25 Acute pain of left Results for this CONTRAST LEFT PM CDT shoulder procedure are in the results section. XR SHOULDER 2+ VW LEFT Routine 06/26/2017 1:49 Acute pain of left Results for this PM CDT knee procedure are in the results section. after 03/10/2017 Results Estimated GFR (03/05/2018 11:30 PM BLOOD BANK TECHNOLOGIST) Estimated GFR >=90 mL/min/1.73 m2 [facility] Comment: HOSPITAL CatergoryUnitsInterpretation G1 >=90 Normal or high G2 60-89Mildly decreased A9v48-09Acpfec to moderately decreased L1c14-05Ckhsjqtwxa to severely decreased G4 15-29Severely decreased G5 <15Kidney failure The eGFR was calculated using the Chronic Kidney Disease Epidemiology Collaboration (CKD-EPI) equation. Interpretation is based on recommendations of the National Kidney Foundation-Kidney Disease Outcomes Quality Initiative (NKF-KDOQI) published in 2014. Specimen Plasma specimen Performing Organization Address City/State/Zipcode Phone Number [facility] DEPARTMENT OF PATHOLOGY AND [address] [place] [address] GENOMIC MEDICINE [facility] [id number] [place] [id number] Troponin (03/05/2018 11:30 PM BLOOD BANK TECHNOLOGIST) Troponin <0.10 0.00 - 0.10 ng/mL [facility] Comment: HOSPITAL 0.11 - 1.49 ng/mlMay indicate increased risk of acute coronary syndrome. >=1.5 ng/mlConsistent with acute myocardial infarction. The diagnostic value of a single normal or non-diagnostic result is questionable.Serial samples at 2-6 hour intervals are required to rule out acute myocardial injury. Specimen Plasma specimen Performing Organization Address City/[facility] Phone Number [facility] DEPARTMENT OF PATHOLOGY AND [address] [place] [address]. [place], [place] [phone] [place] [phone] Partial thromboplastin time, activated (03/05/2018 11:30 PM BLOOD BANK TECHNOLOGIST) PTT 27.7 23.0 - 36.0 sec [facility] Comment: HOSPITAL PTT therapeutic range for unfractionated heparin is 61.0-112.0 seconds which corresponds to Anti-Xa 0.3-0.7 U/ml. Specimen Blood Performing Organization Address [facility] Centercowi Phone Number [facility] DEPARTMENT OF PATHOLOGY AND [address] [place] [address]. [place], [place] [phone] [place] [phone] Prothrombin time with INR (03/05/2018 11:30 PM BLOOD BANK TECHNOLOGIST) Prothrombin time 13.1 11.5 - 14.5 sec [facility] INR 1.0 [facility] Comment: HOSPITAL The International Normalized Ratio (INR) is a therapeutic monitoring tool for patients who are stable on oral anticoagulant therapy. An INR of 2.0-3.0 is suggested for deep vein thrombosis/pulmonary embolism. Specimen Blood Performing Organization Address [facility] Phone Number [facility] DEPARTMENT PATHOLOGY AND [address] [place] [address]. [place], [place] [address] [place] [phone] CBC with platelet and differential (03/05/2018 11:30 PM BLOOD BANK TECHNOLOGIST) WBC 5.80 4.50 - 11.00 k/uL [facility] RBC 4.31 4.20 - 5.50 m/uL [facility] HGB 12.1 12.0 - 16.0 g/dL [facility] HCT 36.4 (L) 37.0 - 47.0 % [facility] MCV 84.5 82.0 - 100.0 fL [facility] MCH 28.1 27.0 - 34.0 pg [facility] MCHC 33.2 31.0 - 37.0 g/dL [facility] RDW - SD 40.6 37.0 - 55.0 fL [facility] MPV 10.6 8.8 - 13.2 fL [facility] Platelet count 251 150 - 400 k/uL [facility] Neutrophils 41.7 39.0 - 69.0 % [facility] Lymphocytes 46.9 (H) 25.0 - 45.0 % [facility] Monocytes 8.3 0.0 - 10.0 % [facility] Eosinophils 1.9 0.0 - 5.0 % [facility] Basophils 0.7 0.0 - 1.0 % [facility] Immature granulocytes 0.5 0.0 - 1.0 % [facility] Specimen Blood Performing Organization Address City/[facility] Centercode Phone Number [facility] DEPARTMENT OF PATHOLOGY AND [address] [place] [address]. [address] [address] B natriuretic peptide (03/05/2018 11:30 PM BLOOD BANK TECHNOLOGIST) BNP 81 0 - 100 pg/mL [facility] Performing Organization Address City/[facility] Centercode Phone Number [facility] DEPARTMENT OF PATHOLOGY AND [address] [place] [address]. [address] [address] Creatine kinase, total (CPK) (03/05/2018 11:30 PM BLOOD BANK TECHNOLOGIST) Creatine kinase 106 35 - 200 U/L [facility] Specimen Plasma specimen Performing Organization Address City/[facility] Centercode Phone Number [facility] DEPARTMENT OF PATHOLOGY AND [address] [place] [address]. [address] [address] Comprehensive metabolic panel (03/05/2018 11:30 PM BLOOD BANK TECHNOLOGIST) Sodium 139 135 - 148 mEq/L [facility] Potassium 3.9 3.5 - 5.0 mEq/L [facility] Chloride 101 99 - 109 mEq/L [facility] CO2 24 24 - 31 mEq/L [facility] Anion gap 14@ANIO 7 - 15 mEq/L [facility] BUN 22 8 - 24 mg/dL [facility] Creatinine 0.59 0.50 - 0.90 mg/dL [facility] Glucose 131 (H) 65 - 99 mg/dL [facility] Calcium 9.2 8.6 - 10.6 mg/dL [facility] Protein 7.4 6.3 - 8.2 g/dL [facility] Albumin 4.0 3.5 - 5.0 g/dL [facility] A/G ratio 1.2 0.7 - 3.8 [facility] Alkaline phosphatase 82 30 - 115 U/L [facility] AST 45 15 - 46 U/L [facility] ALT 34 10 - 55 U/L [facility] Total bilirubin 0.5 0.2 - 1.2 mg/dL [facility] Specimen Plasma specimen Performing Organization Address City/State/Zipcode Phone Number [facility] DEPARTMENT OF PATHOLOGY AND [address] [place] [address] GENOMIC MEDICINE [facility] [address] [place] [address] ECG 12 lead (03/05/2018 11:29 PM BLOOD BANK TECHNOLOGIST) Ventricular rate 69 [facility] Atrial rate 69 [facility] TN interval 130 [facility] QRSD interval 78 [facility] QT interval 448 [facility] QTC interval 480 [facility] P axis 1 26 [facility] QRS axis 1 1 [facility] T wave axis 116 [facility] EKG impression Normal sinus rhythm-Left ventricular [facility] M[facility] hypertrophy with repolarization abnormality-Abnormal ECG-No previous ECGs available- Narrative Performed At Performing Organization Address City/[facility]/Zipcode Phone Number [facility] [address] [place] [address] CT Cervical Spine Wo Contrast (03/05/2018 11:20 PM BLOOD BANK TECHNOLOGIST) Narrative Performed At EXAM: CT CERVICAL SPINE WO CONTRAST [facility] CLINICAL HISTORY: fall TECHNIQUE: Noncontrast enhanced imaging through the cervical spine was performed with coronal and sagittal reconstructed images. CT scans are performed using radiation dose reduction techniques (iterative reconstruction and/or automated exposure control). Technical factors are evaluated and adjusted to ensure appropriate moderation of exposure. Automated dose management technology is applied to adjust radiation exposure while achieving a diagnostic quality image. COMPARISON:CT brain performed concurrently FINDINGS: Straightening of the cervical spine is identified, likely positional. Minimal, less than 1 mm anterolisthesis of C2 on C3, C3 on C4, and retrolisthesis of C4 on C5 is seen. Cervical alignment and vertebral body height are otherwise within normal limits. There is no evidence of acute fracture, suspicious osteolytic lesion, or suspicious osteoblastic lesion. Minimal degenerative changes without significant thecal sac stenosis. Scattered chronic mild to moderate foraminal narrowing is seen, worse at the C5-C6 level. No acute thecal sac stenosis or foraminal narrowing. Visualized paraspinal soft tissues are unremarkable. No incidental thyroid nodules are noted. Visualized lung apices are without evidence of acute focal pneumonia or concerning nodule. IMPRESSION: 1.No acute osseous abnormality of the cervical spine. 2.Minimal degenerative changes without significant thecal sac stenosis. Scattered chronic mild to moderate foraminal narrowing is seen, worse at the C5-C6 level. No acute thecal sac stenosis or foraminal narrowing. [facility]-[id number] Procedure Note Interface, Radiology Results Incoming - 03/05/2018 11:28 PM BLOOD BANK TECHNOLOGIST EXAM: CT CERVICAL SPINE WO CONTRAST CLINICAL HISTORY: fall TECHNIQUE: Noncontrast enhanced imaging through the cervical spine was performed with coronal and sagittal reconstructed images. CT scans are performed using radiation dose reduction techniques (iterative reconstruction and/or automated exposure control). Technical factors are evaluated and adjusted to ensure appropriate moderation of exposure. Automated dose management technology is applied to adjust radiation exposure while achieving a diagnostic quality image. COMPARISON: CT brain performed concurrently FINDINGS: Straightening of the cervical spine is identified, likely positional. Minimal, less than 1 mm anterolisthesis of C2 on C3, C3 on C4, and retrolisthesis of C4 on C5 is seen. Cervical alignment and vertebral body height are otherwise within normal limits. There is no evidence of acute fracture, suspicious osteolytic lesion, or suspicious osteoblastic lesion. Minimal degenerative changes without significant thecal sac stenosis. Scattered chronic mild to moderate foraminal narrowing is seen, worse at the C5- C6 level. No acute thecal sac stenosis or foraminal narrowing. Visualized paraspinal soft tissues are unremarkable. No incidental thyroid nodules are noted. Visualized lung apices are without evidence of acute focal pneumonia or concerning nodule. IMPRESSION: 1. No acute osseous abnormality of the cervical spine. 2. Minimal degenerative changes without significant thecal sac stenosis. Scattered chronic mild to moderate foraminal narrowing is seen, worse at the C5- C6 level. No acute thecal sac stenosis or foraminal narrowing. [facility]-[id number] Performing Organization Address City/State/Zipcode Phone Number [facility] [address] [place] [address] CT Head Wo Contrast (03/05/2018 11:20 PM BLOOD BANK TECHNOLOGIST) Narrative Performed At EXAM: CT HEAD WO CONTRAST [facility] CLINICAL HISTORY: fall TECHNIQUE: Noncontrast enhanced images of the brain were obtained from the skull base to the vertex. Both soft tissue and bone reconstruction algorithms were performed. CT scans are performed using radiation dose reduction techniques (iterative reconstruction and/or automated exposure control). Technical factors are evaluated and adjusted to ensure appropriate moderation of exposure. Automated dose management technology is applied to adjust radiation exposure while achieving a diagnostic quality image. COMPARISON:None. FINDINGS: Evidence for a small to moderately sized extracranial soft tissue contusion overlying the left lateral frontal calvarium. The brannon-white matter differentiation is preserved and without evidence of acute territorial infarction. There is no evidence for acute intracranial hemorrhage, mass, mass effect, hydrocephalus, or extra-axial fluid collection. Orbits are unremarkable.Paranasal sinuses are clear.Mastoid air cells are normally pneumatized.Osseous structures are intact. Mild frontal hyperostosis noted. IMPRESSION: Evidence for a small to moderately sized extracranial soft tissue contusion overlying the left lateral frontal calvarium. No CT evidence for acute intracranial abnormality. [facility]-[id number] Procedure Note Interface, Radiology Results Incoming - 03/05/2018 11:25 PM BLOOD BANK TECHNOLOGIST EXAM: CT HEAD WO CONTRAST CLINICAL HISTORY: fall TECHNIQUE: Noncontrast enhanced images of the brain were obtained from the skull base to the vertex. Both soft tissue and bone reconstruction algorithms were performed. CT scans are performed using radiation dose reduction techniques (iterative reconstruction and/or automated exposure control). Technical factors are evaluated and adjusted to ensure appropriate moderation of exposure. Automated dose management technology is applied to adjust radiation exposure while achieving a diagnostic quality image. COMPARISON: None. FINDINGS: Evidence for a small to moderately sized extracranial soft tissue contusion overlying the left lateral frontal calvarium. The brannon-white matter differentiation is preserved and without evidence of acute territorial infarction. There is no evidence for acute intracranial hemorrhage, mass, mass effect, hydrocephalus, or extra-axial fluid collection. Orbits are unremarkable. Paranasal sinuses are clear. Mastoid air cells are normally pneumatized. Osseous structures are intact. Mild frontal hyperostosis noted. IMPRESSION: Evidence for a small to moderately sized extracranial soft tissue contusion overlying the left lateral frontal calvarium. No CT evidence for acute intracranial abnormality. [facility]-[id number] Performing Organization Address City/State/Zipcode Phone Number [facility] [address] [place] [address] MRI Shoulder Wo Contrast Left (07/29/2017 3:25 PM CDT) Narrative Performed At EXAMINATION:MRI SHOULDER WO CONTRAST LEFT [facility] CLINICAL HISTORY:M25.512 Pain in left shoulder, SHOULDER [...] posterosuperior labral tear. 5.Additional findings as above. [facility]-[id number] Procedure Note [facility], Radiology Results Incoming - 07/29/2017 4:16 PM [...] labral tear. 5. Additional findings as above. [facility]-[id number] Performing Organization Address City/[facility]/Zipcode Phone Number [facility] [address] [place] [address] XR Shoulder 2+ Vw Left (06/26/2017 1:49 PM CDT) Narrative Performed At No jose or soft tissue abnormality [facility] Performing Organization Address [facility]/Zipcode Phone Number [facility] [address] [place] [address] after 03/10/2017 Insurance Payer Benefit Plan / Group Subscriber ID Type Phone Address [facility] xxxxxxxxx O Advance Directives Patient has advance care planning documents on file. For more information, please contact:Rasheed [phone] [place] [address]
--- OUTSIDE RECORDS SUMMARY | 2018-03-11 17:53 | XMS REPORT ---
:1950 [facility] Address [address] [place] [address] Dr. Kaminski [address] [place] [address] Care Team Providers Name Role Phone MICHELE WOOD JR Primary Care Provider Unavailable MICHELE WOOD JR, M.D. Unavailable Unavailable Problems This patient has no known problems. Allergies, Adverse Reactions, Alerts This patient has no known allergies or adverse reactions. Medications This patient has no known medications.
[2018-03-11] MEDS ORDERED: LORAZEPAM 1 MG TABLET ONE (19:57)
[2018-03-11] MEDS ORDERED: HYDROCODONE/APAP 5/325 MG TAB ONE (19:58)
[2018-03-11 20:00] LABS: Absolute Lymphocytes (CBC) 2.5 K/uL (0.7-4.9); Absolute Monocytes 0.4 K/uL (0.1-1.3); Absolute Neutrophil 2.5 K/uL (1.8-8.0); Basophils % 0.7 % (0-1.3); Eosinophils % 1.3 % (0-4.4); Hematocrit 40.9 % (36.0-45.0); Lymphocytes % 45.4 % (15.3-44.8); MPV 8.8 fL (7.6-11.3); Monocytes % 8.1 % (3.3-12.3); Protime INR 0.98; RBC Red Blood Cell Count 4.75 M/uL (3.86-4.86)
[2018-03-11 20:13] LABS: ALT/SGPT 41 U/L (12-78); AST/SGOT 51 U/L (15-37); Albumin 4.6 g/dL (3.4-5.0); Alkaline Phosphatase 103 U/L (45-117); BUN Blood Urea Nitrogen 12 mg/dL (7-18); Bicarbonate 29 mmol/L (21-32); Bilirubin Direct 0.1 mg/dL (0-0.2); Bilirubin Total 0.6 mg/dL (0.2-1.0); Glucose Level 103 mg/dL (74-106); Potassium 3.5 mmol/L (3.5-5.1); Protein, Total 8.9 g/dL (6.4-8.2); Sodium Level 141 mmol/L (136-145)
--- NOTE | 2018-03-11 21:11 | RAD REPORT ---
EXAM DESCRIPTION: CT - Head C Spine Cap Ciara Chatman - 03/11/2018 8:46 pm TECHNIQUE: Computed axial tomography of the head and cervical spine was obtained. Coronal and sagitt al reconstruction was performed Computed axial tomography of the chest, abdomen and pelvis was obtained. Contrast was not requested. All CT scans are performed using dose optimization technique as appropriate and may include automated exposure control or mA/KV adjustment according to patient size. CLINICAL HISTORY: Head and neck injury with chest and abdominal pain status post fall COMPARISON: CT abdomen July 2017 FINDINGS: Left frontal scalp hematoma is present without an underlying skull fracture. An intracranial bleed is not seen. The ventricles are normal in caliber. An extra-axial fluid collection is not noted. . Fluid within the sinuses/mastoids is not seen. A cervical fracture is not seen. No dislocation is noted. The evaluation of mediastinum, steve, vessels, solid organs and bowel are limited secondary to the lac k of contrast administration. A mediastinal hematoma is not noted. A pleural effusion is not seen. A lung contusion is not present. The liver,spleen, pancreas, adrenals,kidneys and do not demonstrate a traumatic injury. IMPRESSION: 1. No acute intracranial abnormality is seen. 2. A cervical fracture is not visualized. If the patient continues have symptoms to suggest intracran ial/spinal cord pathology MRI be recommended 3. No traumatic abnormality involving the chest/abdomen/pelvis.
[2018-03-11 22:50] LABS: Barbiturates NEGATIVE (NEGATIVE); Benzodiazepines NEGATIVE (NEGATIVE); Cocaine NEGATIVE (NEGATIVE); METHAMPHETAM NEGATIVE (NEGATIVE); Methadone NEGATIVE (NEGATIVE); Opiates NEGATIVE (NEGATIVE); Phencyclidine NEGATIVE (NEGATIVE); THC Cannibis NEGATIVE (NEGATIVE)
[2018-03-11 23:16] LABS: Urine Blood TRACE (NEG); Urine Glucose NEGATIVE (NEG); Urine Protein NEGATIVE (NEG)
--- NOTE | 2018-03-11 23:22 | ER ---
Nurse's Notes [facility] Name: Luan Echols Age: 67 yrs Sex: Female : 1950 Arrival Date: 03/11/2018 Time: 17:53 Bed 19 Private MD: Jonah Eisenberg Diagnosis: Bipolar disorder;Manic episode;Suicidal ideations Presentation: 03/11 18:14 Presenting complaint: Child states: Daughter reports " She was recently treated and sg discharged from [facility] for a psych issue. Before she was discharged we received a phone call that she had been rushed to the ED for evaluation due to a fall from a chair, injuring the left side of her face and left side of her chest. She was discharged from the ED and from [facility] today. She does not recognize any of us in the family and she is very drowsy and will fall asleep, when she awakens she states 'please dont hurt me!' and is just fearful and crying." Bruising noted to left side of face and head that is dark purple and brown and green in color, pt appears fearful and upset at this time, but remains cooperative. pt family, and children are at bedside at this time. Transition of care: patient was not received from another setting of care. Onset of symptoms was March 11, 2018. Risk Assessment: Do you want to hurt yourself or someone else? Patient reports no desire to harm self or others. Initial Sepsis Screen: Does the patient meet any 2 criteria? No. Patient's initial sepsis screen is negative. Does the patient have a suspected source of infection? No. Patient's initial sepsis screen is negative. Care prior to arrival: None. 18:14 Method Of Arrival: Ambulatory 18:14 Acuity: MAGDA 2 sg Historical: - Allergies: 18:21 No Known Allergies; sg - PMHx: 18:14 Bipolar disorder; Depression; High Cholesterol; Hypothyroidism; sg - PSHx: 18:14 None; sg - Immunization history:: Adult Immunizations unknown. - Social history:: Smoking status: unknown. - Ebola Screening: : Patient negative for fever greater than or equal to 101.5 degrees Fahrenheit, and additional compatible Ebola Virus Disease symptoms Patient denies exposure to infectious person Patient denies travel to an Ebola-affected area in the 21 days before illness onset No symptoms or risks identified at this time. Screenin:02 Abuse screen: Denies threats or abuse. Nutritional screening: No deficits noted. jd3 Tuberculosis screening: No symptoms or risk factors identified. Fall Risk Ambulatory Aid- None/Bed Rest/Nurse Assist (0 pts). Gait- Normal/Bed Rest/Wheelchair (0 pts) Mental Status- Oriented to own ability (0 pts). Total Stanley Fall Scale indicates No Risk (0-24 pts). Assessment: 19:45 General: Appears uncomfortable, Behavior is cooperative, anxious. Pain: Complains of rr5 pain in left lateral anterior chest and face Quality of pain is described as aching, tender. Neuro: Level of Consciousness is awake, alert, obeys commands, Oriented to person, time, situation. Cardiovascular: Capillary refill < 3 seconds Patient's skin is warm and dry. Respiratory: Airway is patent Respiratory effort is even, unlabored, Respiratory pattern is regular, symmetrical. GI: Abdomen is round non-distended, Patient currently denies abdominal pain. : No signs and/or symptoms were reported regarding the genitourinary system. EENT: No signs and/or symptoms were reported regarding the EENT system. Derm: Skin is intact, Skin is dry, Skin is normal, Skin temperature is warm Bruising that is dark purple, brown, on left cheek and left eye. Musculoskeletal: Circulation, motion, and sensation intact. Range of motion: intact in all extremities. 19:55 Reassessment: pt reported to not want to take the ordered Ativan. rr5 20:33 Reassessment: Patient appears in no apparent distress at this time. Patient and/or rr5 family updated on plan of care and expected duration. Pain level reassessed. Patient is alert, oriented x 3, equal unlabored respirations, skin warm/dry/pink. Patient states feeling better. 21:33 Reassessment: Patient appears in no apparent distress at this time. No changes from jd3 previously documented assessment. Patient and/or family updated on plan of care and expected duration. Pain level reassessed. Patient is alert, oriented x 3, equal unlabored respirations, skin warm/dry/pink. 22:33 Reassessment: Patient appears in no apparent distress at this time. No changes from jd3 previously documented assessment. Patient and/or family updated on plan of care and expected duration. Pain level reassessed. Patient is alert, oriented x 3, equal unlabored respirations, skin warm/dry/pink. [facility] 23:25 Reassessment: Patient appears in no apparent distress at this time. Patient and/or jd3 family updated on plan of care and expected duration. Pain level reassessed. Patient is alert, oriented x 3, equal unlabored respirations, skin warm/dry/pink. pt reporting wanting to be . provider notified of suicidal ideation, SI charting continued. 03/12 00:32 Reassessment: [facility] at bedside assessing the patient. mg2 01:30 Reassessment: Patient appears in no apparent distress at this time. Patient and/or jd3 family updated on plan of care and expected duration. Pain level reassessed. Patient is alert, oriented x 3, equal unlabored respirations, skin warm/dry/pink. 02:27 Reassessment: Patient appears in no apparent distress at this time. No changes from jd3 previously documented assessment. Patient and/or family updated on plan of care and expected duration. Pain level reassessed. Patient is alert, oriented x 3, equal unlabored respirations, skin warm/dry/pink. awaiting bed placement pending transfer. 03:30 Reassessment: Patient appears in no apparent distress at this time. No changes from jd3 previously documented assessment. Patient and/or family updated on plan of care and expected duration. Pain level reassessed. Patient is alert, oriented x 3, equal unlabored respirations, skin warm/dry/pink. 03:38 Reassessment: pt refused ordered Ativan and Seriquil, provider notified, no new orders jd3 at this time. 04:30 Reassessment: Patient appears in no apparent distress at this time. No changes from jd3 previously documented assessment. Patient and/or family updated on plan of care and expected duration. Pain level reassessed. Patient is alert, oriented x 3, equal unlabored respirations, skin warm/dry/pink. 05:24 Reassessment: Patient appears in no apparent distress at this time. asleep on bed rr5 comfortably. 06:50 Reassessment: Patient appears in no apparent distress at this time. Patient is alert, rr5 oriented x 3, equal unlabored respirations, skin warm/dry/pink. asleep comfortably on bed. 07:15 Reassessment: Patient appears in no apparent distress at this time. Patient and/or hb family updated on plan of care and expected duration. Pain level reassessed. Patient is alert, oriented x 3, equal unlabored respirations, skin warm/dry/pink. 07:50 Reassessment: [place] Echols [phone] cell. hb 08:02 Reassessment: Resting with positive signs of sleep. Sitter remains at bedside. hb 09:00 Reassessment: Patient appears in no apparent distress at this time. No changes from hb previously documented assessment. Patient and/or family updated on plan of care and expected duration. Pain level reassessed. 10:05 Reassessment: Patient appears in no apparent distress at this time. No changes from aj1 previously documented assessment. Patient and/or family updated on plan of care and expected duration. Pain level reassessed. Patient is alert, oriented x 3, equal unlabored respirations, skin warm/dry/pink. 11:05 Reassessment: Patient appears in no apparent distress at this time. No changes from aj1 previously documented assessment. Patient and/or family updated on plan of care and expected duration. Pain level reassessed. Patient is alert, oriented x 3, equal unlabored respirations, skin warm/dry/pink. 11:28 Reassessment: Spoke with [facility] intake who reports that they are still ss awaiting discharges to open up beds for new patients. Pt remains on wait list. Spoke with [facility] intake who reports that patient's chart is still under review. 11:29 Reassessment: [facility] intake nurse asks to call back in one hour for update as she is not ss available at this time. 12:52 Reassessment: Patient appears in no apparent distress at this time. No changes from aj1 previously documented assessment. Patient and/or family updated on plan of care and expected duration. Pain level reassessed. Patient is alert, oriented x 3, equal unlabored respirations, skin warm/dry/pink. 14:00 Reassessment: Patient appears in no apparent distress at this time. No changes from aj1 previously documented assessment. Patient and/or family updated on plan of care and expected duration. Pain level reassessed. Patient is alert, oriented x 3, equal unlabored respirations, skin warm/dry/pink. 15:00 Reassessment: Patient appears in no apparent distress at this time. No changes from aj1 previously documented assessment. Patient and/or family updated on plan of care and expected duration. Pain level reassessed. Patient is alert, oriented x 3, equal unlabored respirations, skin warm/dry/pink. 16:00 Reassessment: Patient appears in no apparent distress at this time. No changes from aj1 previously documented assessment. Patient and/or family updated on plan of care and expected duration. Pain level reassessed. Patient is alert, oriented x 3, equal unlabored respirations, skin warm/dry/pink. 17:00 Reassessment: Patient appears in no apparent distress at this time. No changes from aj1 previously documented assessment. Patient and/or family updated on plan of care and expected duration. Pain level reassessed. Patient is alert, oriented x 3, equal unlabored respirations, skin warm/dry/pink. 18:00 Reassessment: Patient appears in no apparent distress at this time. No changes from aj1 previously documented assessment. Patient and/or family updated on plan of care and expected duration. Pain level reassessed. Patient is alert, oriented x 3, equal unlabored respirations, skin warm/dry/pink. Psych: 03/11 23:33 Subjective: Patient's mood is sad, Delusions are denied, Hallucinations are denied jd3 Having thoughts of suicide. Objective: Patient is using poor eye contact, restless, Speech is slow, Affect is inappropriate. Interventions: Patient placed in hospital gown. Searched person for dangerous items. Urine collected and sent for urine drug test. Suicide Risk Assessment: Sad Person Scale: Sex of patient: Female: Score 0 points. Age of patient: Score 0 point if patient falls outside of specified age parameters. Depression: Score 1 point if signs of depression are present. Previous Attempt: Score 0 point if patient has not previously attempted suicide. Substance Abuse: Score 0 point if patient does not abuse alcohol or drugs. Rational Thinking: Score 1 point if patient is lacking rational thinking. Social Support: Score 0 if social support is present/available. Organized Plan: Score 0 if patient did not have an organized plan in place. Relationship: Score 0 point if patient has a spouse or domestic partner. Chronic Sickness: Score 1 point if patient has illness, chronic, debilitating, or severe. TOTAL POINTS: If total points are 3-4, proposed clinical action is close follow-up/consider hospitalization. Safety Checks: Personal items have been removed. items with family Door is open. Visitors are present. Pt denies substance abuse. 03/12 18:36 Commitment: Patient will be a voluntary commitment. aj1 Vital Signs: 03/11 18:20 sg 20:32 BP 177 / 87; Pulse 78; Resp 17 S; Temp 98.8(O); Pulse Ox 100% on R/A; Weight 52.16 kg jd3 (R); Height 5 ft. 2 in. (157.48 cm) (R); Pain 0/10; 22:32 BP 188 / 102; Pulse 80; Resp 16 S; Pulse Ox 100% on R/A; jd3 03/12 02:28 BP 184 / 94; Pulse 89; Resp 16 S; Pulse Ox 97% on R/A; jd3 07:15 BP 168 / 88; Pulse 86; Resp 16; Temp 98.2; Pulse Ox 100% on R/A; Pain 0/10; hb 12:27 BP 151 / 79; mp1 12:27 BP 151 / 79; Pulse 87; Resp 18; Temp 98.7; Pulse Ox 100% ; mp1 15:50 BP 130 / 87; Pulse 84; Resp 16; Temp 99.5; Pulse Ox 99% ; mp1 03/11 20:32 Body Mass Index 21.03 (52.16 kg, 157.48 cm) jd3 03/11 18:20 unable to obtain VS at this time due to pt current condition sg ED Course: 17:53 Patient arrived in ED. sb2 17:54 Jonah Eisenberg MD is Private Physician. sb2 18:14 Arm band placed on. sg 18:20 Triage completed. sg 18:27 Juma Salas MD is Attending Physician. gs 19:20 Inserted saline lock: 20 gauge in right antecubital area, using aseptic technique. jd3 Blood collected. 19:21 Radiology exam delayed due to lab results not completed at this time. (BUN/Creatinine). vm2 19:27 Terry Mariscal, RN is Primary Nurse. jd3 19:41 Radiology exam delayed due to lab results not completed at this time. (BUN/Creatinine). vm2 19:45 EKG done, by ED staff, reviewed by Juma Salas MD. jd3 19:58 Radiology exam delayed due to lab results not completed at this time. (BUN/Creatinine). vm2 20:02 Patient has correct armband on for positive identification. Bed in low position. Call jd3 light in reach. Side rails up X 1. Adult w/ patient. 20:07 Radiology exam delayed due to lab results not completed at this time. (BUN/Creatinine). vm2 20:[address] vm2 20:45 CT completed. Patient tolerated procedure well. Patient moved back from CT. mn 22:45 Attending Physician role handed off by Juma Salas MD [facility] 22:45 Alexandro Cast MD is Attending Physician. [facility] 23:30 Safety Checks: Personal items have been removed. The door is open or patient has been jd3 placed in a hallway bed/chair. A family member and/or friend is present and encouraged to stay. Sitter present at this time. 23:30 faxed facesheet and lab results to the [facility] at 2330. 23:45 Safety Checks: Personal items have been removed. The door is open or patient has been jd3 placed in a hallway bed/chair. A family member and/or friend is present and encouraged to stay. Sitter present at this time. 03/12 00:00 Safety checks: Items removed: yes. Door open/sign placed on door: yes. Family/friend ms present: yes. Sitter present: Yes. 00:15 Safety checks: Items removed: yes. Door open/sign placed on door: yes. Family/friend ms present: yes. Family/friends encouraged to stay with patient. Sitter present: Yes. 00:22 [facility] Rep. At bedside. ms 00:30 Safety checks: Items removed: yes. Door open/sign placed on door: yes. Family/friend ms present: yes. Family/friends encouraged to stay with patient. Sitter present: Yes. 00:45 Safety checks: Items removed: yes. Door open/sign placed on door: yes. Family/friend mw2 present: yes. Sitter present: Yes. Safety checks:. 01:00 Safety checks: Items removed: yes. Door open/sign placed on door: yes. Family/friend mw2 present: yes. Sitter present: Yes. 01:15 Safety checks: Items removed: yes. Door open/sign placed on door: yes. Family/friend mw2 present: yes. Sitter present: Yes. 01:30 Safety checks: Items removed: yes. Door open/sign placed on door: yes. Family/friend mw2 present: yes. Sitter present: Yes. 01:45 Safety checks: Items removed: yes. Door open/sign placed on door: yes. Family/friend mw2 present: yes. Sitter present: Yes. 02:00 Safety checks: Items removed: yes. Door open/sign placed on door: yes. Family/friend mw2 present: yes. Sitter present: Yes. 02:15 Safety checks: Items removed: yes. Door open/sign placed on door: yes. Family/friend mw2 present: no. Sitter present: Yes. 02:30 Safety checks: Items removed: yes. Door open/sign placed on door: yes. Family/friend mw2 present: yes. Sitter present: Yes. 02:45 Safety checks: Items removed: yes. Door open/sign placed on door: yes. Family/friend mw2 present: yes. Sitter present: Yes. 03:00 Safety checks: Items removed: yes. Door open/sign placed on door: yes. Family/friend mw2 present: yes. Sitter present: Yes. 03:15 Safety checks: Items removed: yes. Door open/sign placed on door: yes. Family/friend mw2 present: yes. Sitter present: Yes. 03:30 Safety checks: Items removed: yes. Door open/sign placed on door: yes. Family/friend mw2 present: yes. Sitter present: Yes. 03:45 Safety checks: Items removed: yes. Door open/sign placed on door: yes. Family/friend mw2 present: Sitter present: Yes. 04:00 Safety checks: Items removed: yes. Door open/sign placed on door: yes. Family/friend mw2 present: yes. Sitter present: Yes. 04:15 Safety checks: Items removed: yes. Door open/sign placed on door: yes. Family/friend mw2 present: yes. Sitter present: Yes. 04:30 Safety checks: Items removed: yes. Door open/sign placed on door: yes. Family/friend mw2 present: yes. Sitter present: Yes. 04:45 Safety checks: Items removed: yes. Door open/sign placed on door: yes. Family/friend mw2 present: no. Sitter present: Yes. Safety checks:. 05:00 Safety checks: Items removed: yes. Door open/sign placed on door: yes. Family/friend mw2 present: no. Sitter present: Yes. 05:00 patient fell asleep with both side rails up. ar5 05:15 Safety checks: Items removed: yes. Door open/sign placed on door: yes. Family/friend mw2 present: no. Sitter present: Yes. 05:30 Safety checks: Items removed: yes. Door open/sign placed on door: yes. Family/friend mw2 present: no. Sitter present: Yes. 05:45 Safety checks: Items removed: yes. Door open/sign placed on door: yes. Family/friend mw2 present: no. Sitter present: Yes. 06:00 Safety checks: Items removed: yes. Door open/sign placed on door: yes. Family/friend mw2 present: no. Sitter present: Yes. 06:15 Safety checks: Items removed: yes. Door open/sign placed on door: yes. Family/friend mw2 present: no. Sitter present: Yes. 06:30 Safety checks: Items removed: yes. Door open/sign placed on door: yes. Family/friend mw2 present: no. Sitter present: Yes. 06:45 Safety checks: Items removed: yes. Door open/sign placed on door: yes. Family/friend mw2 present: no. Sitter present: Yes. 07:00 Safety Checks: Personal items have been removed. The door is open or patient has been hb placed in a hallway bed/chair. A family member and/or friend is present and encouraged to stay. Sitter present at this time. 07:15 Safety Checks: Personal items have been removed. The door is open or patient has been hb placed in a hallway bed/chair. A family member and/or friend is present and encouraged to stay. Sitter present at this time. 07:30 Safety Checks: Personal items have been removed. The door is open or patient has been hb placed in a hallway bed/chair. A family member and/or friend is present and encouraged to stay. Sitter present at this time. 07:45 Safety Checks: Personal items have been removed. The door is open or patient has been hb placed in a hallway bed/chair. A family member and/or friend is present and encouraged to stay. Sitter present at this time. 08:00 Safety Checks: Personal items have been removed. The door is open or patient has been hb placed in a hallway bed/chair. Sitter present at this time. 08:15 Safety Checks: Personal items have been removed. The door is open or patient has been hb placed in a hallway bed/chair. Sitter present at this time. 08:30 Safety Checks: Personal items have been removed. The door is open or patient has been hb placed in a hallway bed/chair. Sitter present at this time. 08:45 Safety Checks: Personal items have been removed. The door is open or patient has been hb placed in a hallway bed/chair. Sitter present at this time. 09:00 Safety Checks: Personal items have been removed. The door is open or patient has been hb placed in a hallway bed/chair. Sitter present at this time. 09:15 Safety Checks: Personal items have been removed. The door is open or patient has been hb placed in a hallway bed/chair. Sitter present at this time. 09:15 Safety checks: Items removed: yes. Door open/sign placed on door: yes. Family/friend mp1 present: no. Sitter present: Yes. 09:30 Safety Checks: Personal items have been removed. The door is open or patient has been hb placed in a hallway bed/chair. Sitter present at this time. 09:30 Safety checks: Items removed: yes. Door open/sign placed on door: yes. Family/friend mp1 present: yes. Sitter present: Yes. 09:45 Safety checks: Items removed: yes. Door open/sign placed on door: yes. Family/friend mp1 present: no. Sitter present: Yes. 10:00 Safety checks: Items removed: yes. Door open/sign placed on door: yes. Family/friend mp1 present: no. Sitter present: Yes. 10:15 Safety checks: Items removed: yes. Door open/sign placed on door: yes. Family/friend mp1 present: no. Sitter present: Yes. 10:30 Safety checks: Items removed: yes. Door open/sign placed on door: yes. Family/friend mp1 present: no. Sitter present: Yes. 10:45 Safety checks: Items removed: yes. Door open/sign placed on door: yes. Family/friend mp1 present: no. Sitter present: Yes. 11:00 Safety checks: Items removed: yes. Door open/sign placed on door: yes. Family/friend mp1 present: no. Sitter present: Yes. 11:15 Safety checks: Items removed: yes. Door open/sign placed on door: yes. Family/friend mp1 present: no. Sitter present: Yes. 11:30 Safety checks: Items removed: yes. Door open/sign placed on door: yes. Family/friend mp1 present: yes. Sitter present: Yes. 11:45 Safety checks: Items removed: yes. Door open/sign placed on door: yes. Family/friend mp1 present: no. Sitter present: Yes. 12:00 Safety checks: Items removed: yes. Door open/sign placed on door: yes. Family/friend mp1 present: yes. no. Sitter present: Yes. 12:15 Safety checks: Items removed: yes. no. Reason for not removing items: Door open/sign mp1 placed on door: yes. Family/friend present: no. Sitter present: Yes. 12:30 Safety checks: Items removed: yes. Door open/sign placed on door: yes. Family/friend mp1 present: yes. Sitter present: Yes. No. 12:45 Safety checks: Items removed: yes. Door open/sign placed on door: yes. Family/friend mp1 present: yes. 12:53 No provider procedures requiring assistance completed. aj1 13:00 Safety checks: Items removed: yes. no. Reason for not removing items: Door open/sign mp1 placed on door: yes. Family/friend present: yes. Sitter present: Yes. 13:15 Safety checks: Items removed: yes. Door open/sign placed on door: Patient placed in mp1 hallway bed. yes. Family/friend present: yes. Sitter present: Yes. 13:30 Safety checks: Items removed: yes. Door open/sign placed on door: yes. Family/friend mp1 present: yes. Sitter present: Yes. 13:45 Safety checks: Items removed: yes. Door open/sign placed on door: yes. Family/friend mp1 present: yes. Sitter present: Yes. 14:00 Safety checks: Items removed: yes. Door open/sign placed on door: yes. Family/friend mp1 present: yes. no. Sitter present: Yes. 14:15 Safety checks: Items removed: yes. Door open/sign placed on door: yes. Family/friend mp1 present: no. Sitter present: Yes. 14:30 Safety checks: Items removed: yes. Door open/sign placed on door: yes. Family/friend mp1 present: yes. Sitter present: Yes. 14:45 Safety checks: Items removed: yes. Door open/sign placed on door: yes. Family/friend mp1 present: no. Sitter present: Yes. 15:00 Safety checks: Items removed: yes. Door open/sign placed on door: yes. Family/friend mp1 present: no. Sitter present: Yes. 15:15 Safety checks: Items removed: yes. Door open/sign placed on door: yes. Family/friend mp1 present: yes. no. Sitter present: Yes. 15:30 Safety checks: Items removed: yes. Door open/sign placed on door: yes. Family/friend mp1 present: no. Sitter present: Yes. 15:45 Safety checks: Items removed: yes. Door open/sign placed on door: yes. Family/friend mp1 present: no. Sitter present: Yes. 16:00 Safety checks: Items removed: yes. Door open/sign placed on door: yes. Family/friend mp1 present: yes. Sitter present: Yes. 16:15 Safety checks: Items removed: yes. Door open/sign placed on door: yes. Family/friend mp1 present: yes. no. Sitter present: Yes. 16:30 Safety checks: Items removed: yes. Door open/sign placed on door: yes. Family/friend mp1 present: yes. Sitter present: Yes. 16:45 Safety checks: Items removed: yes. Door open/sign placed on door: yes. Family/friend mp1 present: yes. Sitter present: Yes. 16:55 Attending Physician role handed off by Alexandro Cast MD rn 16:55 Devang Hassan MD is Attending Physician. rn 17:00 Safety checks: Items removed: yes. Door open/sign placed on door: yes. Family/friend mp1 present: yes. Sitter present: Yes. 17:15 Safety checks: Items removed: yes. Door open/sign placed on door: yes. Family/friend mp1 present: yes. Sitter present: Yes. 17:30 Safety checks: Items removed: yes. Door open/sign placed on door: yes. Family/friend mp1 present: yes. Sitter present: Yes. 17:30 Safety checks: Items removed: yes. Door open/sign placed on door: yes. Family/friend mp1 present: yes. Sitter present: Yes. 17:45 Safety checks: Items removed: yes. Door open/sign placed on door: yes. Family/friend mp1 present: yes. Sitter present: No. 17:51 Report given to JAVIER Rivas at [facility]. aj1 18:00 Safety checks: Items removed: yes. Door open/sign placed on door: yes. Family/friend mp1 present: yes. Sitter present: Yes. 18:15 Safety checks: Items removed: yes. Door open/sign placed on door: yes. Family/friend mp1 present: yes. Sitter present: Yes. 18:30 Safety checks: Items removed: yes. Door open/sign placed on door: yes. Family/friend mp1 present: yes. Sitter present: Yes. 18:36 IV discontinued, intact, bleeding controlled, No redness/swelling at site. Pressure aj1 dressing applied. Administered Medications: 03/11 19:58 Drug: [place] 5 mg-325 mg 1 tabs Route: PO; jd3 22:23 Follow up: Response: No adverse reaction jd3 23:29 Drug: Rocephin - (cefTRIAXone) 1 grams Route: IVPB; Infused Over: 30 mins; Site: right jd3 antecubital; 23:53 Follow up: Response: No adverse reaction; IV Status: Completed infusion jd3 23:53 Not Given (Physician Discretion): Ativan 1 mg PO once jd3 03/12 02:06 Not Given (Patient Refused): Ativan 0.5 mg IVP once mg2 02:07 Not Given (Patient Refused): SEROquel 25 mg PO once mg2 02:07 Not Given (Patient Refused): Ativan 0.5 mg IVP once mg2 05:00 Drug: Ativan 1 mg Route: PO; rr5 06:55 Follow up: Response: No adverse reaction rr5 05:00 Drug: SEROquel 25 mg Route: PO; rr5 06:54 Follow up: Response: No adverse reaction rr5 12:44 Drug: Motrin 600 mg Route: PO; aj1 18:38 Follow up: Response: No adverse reaction aj1 Outcome: 03/11 23:21 ER care complete, transfer ordered by MD. trujillo 03/12 18:38 Transferred by ground EMS to [facility]. aj1 Condition: stable Discharge instructions given to patient, family, Instructed on the need for transfer, Demonstrated understanding of instructions. 18:39 Patient left the ED. aj1 Signatures: Hellen Rose RN JAVIER aj1 Monster Newton RN Alexandro Kwan MD MD cha Solis, Maria ms Nieto, Roman, MD MD rn Smirch, Shelby, RN RN ss Baxter, Heather RN JAVIER Rabago, Eliana Woodruff 2 Juma Salas MD MD gs Davies, Jonathon, RN RN jd3 Neha Delaney sb2 Ross Ludwig mw2 Adrien Henriquez, RN RN [facility] Loreto Lee mp1 Juan Troncoso RN RN rr5 Bonnie Contreras gm, Autumn ar5 Corrections: (The following items were deleted from the chart) 03/11 21:03 20:00 General: Appears uncomfortable, Behavior is cooperative, anxious, j rr5 21:03 20:00 Pain: Complains of pain in left lateral anterior chest and face Quality of pain rr5 is described as aching, tender, jd3 21: 20:00 Neuro: Level of Consciousness is awake, alert, obeys commands, Oriented to rr5 person, jd3 21:03 20:00 Cardiovascular: Capillary refill < 3 seconds Patient's skin is warm and dry. jd3 rr5 21:03 20:00 Respiratory: Airway is patent Respiratory effort is even, unlabored, Respiratory rr5 pattern is regular, symmetrical, jd3 21:03 20:00 GI: Abdomen is round non-distended, Patient currently denies abdominal pain, jd3 rr5 21: 20:00 : No signs and/or symptoms were reported regarding the genitourinary system. jd3rr5 21:03 20:00 EENT: No signs and/or symptoms were reported regarding the EENT system. jd3 rr5 21:03 20:00 Derm: Skin is intact, Skin is dry, Skin is normal, Skin temperature is warm rr5 Bruising that is dark purple, brown, on left cheek and left eye jd3 21:03 20:00 Musculoskeletal: Circulation, motion, and sensation intact. Range of motion: rr5 intact in all extremities, jd3 21: 20:33 Reassessment: Patient appears in no apparent distress at this time. Patient rr5 and/or family updated on plan of care and expected duration. Pain level reassessed. Patient is alert, oriented x 3, equal unlabored respirations, skin warm/dry/pink. Patient states feeling better. jd3 23:54 23:25 Reassessment: Patient and/or family updated on plan of care and expected jd3 duration. Pain level reassessed. pt reporting wanting to be . provider notified of suicidal ideation, SI charting continued. jd3 03/12 02:38 03/11 20:32 BP 177 / 87; Pulse 78bpm; Resp 17bpm; Spontaneous; Pulse Ox 100% RA; Temp jd3 98.8F Oral; Pain 0/10; jd3 03/12 05:34 01:05 Safety checks: Items removed: yes. Door open/sign placed on door: yes. mw2 Family/friend present: yes. Sitter present: Yes. 2 :34 01:10 Safety checks: Items removed: yes. Door open/sign placed on door: yes. mw2 Family/friend present: yes. Sitter present: Yes. 2 :34 01:10 Safety checks: Items removed: yes. Door open/sign placed on door: yes. mw2 Family/friend present: yes. Sitter present: Yes. mw2 :34 01:20 Safety checks: Items removed: yes. Door open/sign placed on door: yes. mw2 Family/friend present: yes. Sitter present: Yes. mw2 :34 01:25 Safety checks: Items removed: yes. Door open/sign placed on door: yes. mw2 Family/friend present: yes. Sitter present: Yes. 2 06:20 00:45 Safety checks: Items removed: yes. Door open/sign placed on door: yes. ar5 Family/friend present: yes. Sitter present: Yes. [facility] 01:00 Safety checks: Items removed: yes. Door open/sign placed on door: yes. ar5 Family/friend present: yes. Sitter present: Yes. [facility] 01:15 Safety checks: Items removed: yes. Door open/sign placed on door: yes. ar5 Family/friend present: yes. Sitter present: Yes. [facility] 01:30 Safety checks: Items removed: yes. Door open/sign placed on door: yes. ar5 Family/friend present: yes. Sitter present: Yes. [facility] 01:45 Safety checks: Items removed: yes. Door open/sign placed on door: yes. ar5 Family/friend present: yes. Sitter present: Yes. [facility] 02:00 Safety checks: Items removed: yes. Door open/sign placed on door: yes. ar5 Family/friend present: yes. Sitter present: Yes. [facility] 02:15 Safety checks: Items removed: yes. Door open/sign placed on door: yes. ar5 Family/friend present: no. Sitter present: Yes. [facility] 02:30 Safety checks: Items removed: yes. Door open/sign placed on door: yes. ar5 Family/friend present: yes. Sitter present: Yes. [facility] 02:45 Safety checks: Items removed: yes. Door open/sign placed on door: yes. ar5 Family/friend present: yes. Sitter present: Yes. [facility] 03:00 Safety checks: Items removed: yes. Door open/sign placed on door: yes. ar5 Family/friend present: yes. Sitter present: Yes. [facility] 03:15 Safety checks: Items removed: yes. Door open/sign placed on door: yes. ar5 Family/friend present: yes. Sitter present: Yes. [facility] 03:30 Safety checks: Items removed: yes. Door open/sign placed on door: yes. ar5 Family/friend present: yes. Sitter present: Yes. [facility] 03:45 Safety checks: Items removed: yes. Door open/sign placed on door: yes. ar5 Family/friend present: 2 : 04:00 Safety checks: Items removed: yes. Door open/sign placed on door: yes. ar5 Family/friend present: yes. Sitter present: Yes. 2 :20 04:15 Safety checks: Items removed: yes. Door open/sign placed on door: yes. ar5 Family/friend present: yes. Sitter present: Yes. 2 :20 04:30 Safety checks: Items removed: yes. Door open/sign placed on door: yes. ar5 Family/friend present: yes. Sitter present: Yes. 2 06:20 04:45 Safety checks: Items removed: yes. Door open/sign placed on door: yes. ar5 Family/friend present: no. Sitter present: Yes. [facility] : 05:00 Safety checks: Items removed: yes. Door open/sign placed on door: yes. ar5 Family/friend present: no. Sitter present: Yes. [facility] 05:15 Safety checks: Items removed: yes. Door open/sign placed on door: yes. ar5 Family/friend present: no. Sitter present: Yes. [facility] 05:30 Safety checks: Items removed: yes. Door open/sign placed on door: yes. ar5 Family/friend present: no. Sitter present: Yes. 00:45 Safety checks: Items removed: no. Reason for not removing items: the patient mw2 would get upset when we attempted to remove the items. curtains remained opened at all times. Door open/sign placed on door: yes. Family/friend present: yes. Sitter present: Yes. me 01:00 Safety checks: Items removed: no. Reason for not removing items: Door open/sign mw2 placed on door: yes. Family/friend present: yes. Sitter present: Yes. me 01:15 Safety checks: Items removed: no. Reason for not removing items: Door open/sign mw2 placed on door: yes. Family/friend present: yes. Sitter present: Yes. me 01:30 Safety checks: Items removed: no. Reason for not removing items: Door open/sign mw2 placed on door: yes. Family/friend present: yes. Sitter present: Yes. 01:45 Safety checks: Items removed: no. Reason for not removing items: Door open/sign mw2 placed on door: yes. Family/friend present: yes. Sitter present: Yes. 02:00 Safety checks: Items removed: no. Reason for not removing items: Door open/sign mw2 placed on door: yes. Family/friend present: yes. Sitter present: Yes. 02:15 Safety checks: Items removed: no. Reason for not removing items: Door open/sign mw2 placed on door: yes. Family/friend present: no. Sitter present: Yes. 02:30 Safety checks: Items removed: no. Reason for not removing items: Door open/sign mw2 placed on door: yes. Family/friend present: yes. Sitter present: Yes. 02:45 Safety checks: Items removed: no. Reason for not removing items: Door open/sign mw2 placed on door: yes. Family/friend present: yes. Sitter present: Yes. 03:00 Safety checks: Items removed: no. Reason for not removing items: Door open/sign mw2 placed on door: yes. Family/friend present: yes. Sitter present: Yes. 03:15 Safety checks: Items removed: no. Reason for not removing items: Door open/sign mw2 placed on door: yes. Family/friend present: yes. Sitter present: Yes. 03:30 Safety checks: Items removed: no. Reason for not removing items: Door open/sign mw2 placed on door: yes. Family/friend present: yes. Sitter present: Yes. 03:45 Safety checks: Items removed: no. Reason for not removing items: Door open/sign mw2 placed on door: yes. Family/friend present: Sitter present: Yes. 04:00 Safety checks: Items removed: no. Reason for not removing items: Door open/sign mw2 placed on door: yes. Family/friend present: yes. Sitter present: Yes. 04:15 Safety checks: Items removed: no. Reason for not removing items: Door open/sign mw2 placed on door: yes. Family/friend present: yes. Sitter present: Yes. 04:30 Safety checks: Items removed: no. Reason for not removing items: Door open/sign mw2 placed on door: yes. Family/friend present: yes. Sitter present: Yes. 04:45 Safety checks: Items removed: no. Reason for not removing items: Door open/sign mw2 placed on door: yes. Family/friend present: no. Sitter present: Yes. 05:00 Safety checks: Items removed: no. Reason for not removing items: Door open/sign mw2 placed on door: yes. Family/friend present: no. Sitter present: Yes. 05:15 Safety checks: Items removed: no. Reason for not removing items: Door open/sign mw2 placed on door: yes. Family/friend present: no. Sitter present: Yes. 05:30 Safety checks: Items removed: no. Reason for not removing items: Door open/sign mw2 placed on door: yes. Family/friend present: no. Sitter present: Yes. 05:45 Safety checks: Items removed: no. Reason for not removing items: Door open/sign mw2 placed on door: yes. Family/friend present: no. Sitter present: Yes. 06:00 Safety checks: Items removed: no. Reason for not removing items: Door open/sign mw2 placed on door: yes. Family/friend present: no. Sitter present: Yes. 06:15 Safety checks: Items removed: no. Reason for not removing items: Door open/sign mw2 placed on door: yes. Family/friend present: no. Sitter present: Yes. 04:45 Safety checks: Items removed: mw2 2 04:45 Safety checks: Items removed: yes. Door open/sign placed on door: yes. mw2 Family/friend present: no. Sitter present: Yes. 00:45 Safety checks: Items removed: mw2 mw2
--- NOTE | 2018-03-11 23:22 | EDPHYS ---
Physician Documentation [facility] Name: Luan Echols Age: 67 yrs Sex: Female : 1950 Arrival Date: 03/11/2018 Time: 17:53 Bed 19 Private MD: Jonah Eisenbreg ED Physician Devang Hassan HPI: 03/11 22:59 This 67 yrs old Female presents to ER via Ambulatory with complaints of cassandra Altered Mental Status. 22:59 The patient presents with trouble concentrating. Onset: The symptoms/episode cassandra began/occurred just prior to arrival. Historical: - Allergies: 18:21 No Known Allergies; sg - PMHx: 18:14 Bipolar disorder; Depression; High Cholesterol; Hypothyroidism; sg - PSHx: 18:14 None; sg - Immunization history:: Adult Immunizations unknown. - Social history:: Smoking status: unknown. - Ebola Screening: : Patient negative for fever greater than or equal to 101.5 degrees Fahrenheit, and additional compatible Ebola Virus Disease symptoms Patient denies exposure to infectious person Patient denies travel to an Ebola-affected area in the 21 days before illness onset No symptoms or risks identified at this time. ROS: 23:05 Constitutional: Negative for fever, chills, and weight loss, Eyes: Negative for injury, cassandra pain, redness, and discharge, ENT: Negative for injury, pain, and discharge, Neck: Negative for injury, pain, and swelling, Cardiovascular: Negative for chest pain, palpitations, and edema, Respiratory: Negative for shortness of breath, cough, wheezing, and pleuritic chest pain, Abdomen/GI: Negative for abdominal pain, nausea, vomiting, diarrhea, and constipation, Back: Negative for injury and pain, : Negative for injury, bleeding, discharge, and swelling, MS/Extremity: Negative for injury and deformity, Skin: Negative for injury, rash, and discoloration, Neuro: Negative for headache, weakness, numbness, tingling, and seizure, Allergy/Immunology: Negative for hives, rash, and allergies, Endocrine: Negative for neck swelling, polydipsia, polyuria, polyphagia, and marked weight changes, Hematologic/Lymphatic: Negative for swollen nodes, abnormal bleeding, and unusual bruising. 23:05 Psych: Positive for anxiety, new, mild. Exam: 23:05 Constitutional: This is a well developed, well nourished patient who is awake, alert, cassandra and in no acute distress. Head/Face: Normocephalic, atraumatic. Eyes: Pupils equal round and reactive to light, extra-ocular motions intact. Lids and lashes normal. Conjunctiva and sclera are non-icteric and not injected. Cornea within normal limits. Periorbital areas with no swelling, redness, or edema. ENT: Nares patent. No nasal discharge, no septal abnormalities noted. Tympanic membranes are normal and external auditory canals are clear. Oropharynx with no redness, swelling, or masses, exudates, or evidence of obstruction, uvula midline. Mucous membranes moist. Neck: Trachea midline, no thyromegaly or masses palpated, and no cervical lymphadenopathy. Supple, full range of motion without nuchal rigidity, or vertebral point tenderness. No Meningismus. Chest/axilla: Normal chest wall appearance and motion. Nontender with no deformity. No lesions are appreciated. Cardiovascular: Regular rate and rhythm with a normal S1 and S2. No gallops, murmurs, or rubs. Normal PMI, no JVD. No pulse deficits. Respiratory: Lungs have equal breath sounds bilaterally, clear to auscultation and percussion. No rales, rhonchi or wheezes noted. No increased work of breathing, no retractions or nasal flaring. Abdomen/GI: Soft, non-tender, with normal bowel sounds. No distension or tympany. No guarding or rebound. No evidence of tenderness throughout. Back: No spinal tenderness. No costovertebral tenderness. Full range of motion. Female : Normal external genitalia. Skin: Warm, dry with normal turgor. Normal color with no rashes, no lesions, and no evidence of cellulitis. MS/ Extremity: Pulses equal, no cyanosis. Neurovascular intact. Full, normal range of motion. Psych: Awake, alert, with orientation to person, place and time. Behavior, mood, and affect are within normal limits. 23:05 Neuro: Orientation: is normal, appropriate for stated age, no acute changes, Mentation: is normal, appropriate for stated age, no acute changes, Memory: is normal, appropriate for stated age, no acute changes, Cranial nerves: grossly normal, is grossly normal based on the patient's age, no acute changes, Cerebellar function: is grossly normal, is grossly normal based on the patient's age, no acute changes, Motor: is normal, is grossly normal based on the patient's age, no acute changes, moves all fours, Sensation: is normal, no obvious gross deficits, appropriate Gait: is steady, Deep tendon reflexes are 2+ (normal) in the bilateral brachioradialis, bicep, tricep and patellar and Achilles tendons, seizure activity, is not displayed by the patient. Vital Signs: 18:20 sg 20:32 BP 177 / 87; Pulse 78; Resp 17 S; Temp 98.8(O); Pulse Ox 100% on R/A; Weight 52.16 kg jd3 (R); Height 5 ft. 2 in. (157.48 cm) (R); Pain 0/10; 22:32 BP 188 / 102; Pulse 80; Resp 16 S; Pulse Ox 100% on R/A; jd3 03/12 02:28 BP 184 / 94; Pulse 89; Resp 16 S; Pulse Ox 97% on R/A; jd3 07:15 BP 168 / 88; Pulse 86; Resp 16; Temp 98.2; Pulse Ox 100% on R/A; Pain 0/10; hb 12:27 BP 151 / 79; mp1 12:27 BP 151 / 79; Pulse 87; Resp 18; Temp 98.7; Pulse Ox 100% ; mp1 15:50 BP 130 / 87; Pulse 84; Resp 16; Temp 99.5; Pulse Ox 99% ; mp1 03/11 20:32 Body Mass Index 21.03 (52.16 kg, 157.48 cm) [facility] 03/11 18:20 unable to obtain VS at this time due to pt current condition sg MDM: 19:14 Patient medically screened. 23:05 Data reviewed: vital signs, nurses notes, lab test result(s), EKG, radiologic studies, cassandra plain films. 03/11 19:15 Order name: Acetaminophen 03/11 19:15 Order name: Basic Metabolic Panel 03/11 19:15 Order name: CBC with Diff 03/11 19:15 Order name: ETOH Level 03/11 19:15 Order name: Hepatic Function 03/11 19:15 Order name: PT-INR 03/11 19:15 Order name: Salicylate 03/11 19:15 Order name: Urine Drug Screen 03/11 20:06 Order name: CBC with Automated Diff; Complete Time: 21:16 EDMS 03/11 20:06 Order name: Protime (+INR); Complete Time: 21:16 EDMS 03/11 20:13 Order name: Alcohol Serum/Plasma; Complete Time: 21:16 EDMS 03/11 20:14 Order name: Salicylates Level; Complete Time: 21:16 EDMS 03/11 20:15 Order name: Basic Metabolic Panel; Complete Time: 21:16 EDMS 03/11 20:15 Order name: Liver (Hepatic) Function; Complete Time: 21:16 EDMS 03/11 19:15 Order name: CT Head C Spine 03/11 19:15 Order name: CT Chest, Abdomen, Pelvis - W/Contrast 03/11 20:15 Order name: Acetaminophen Level; Complete Time: 21:16 EDMS 03/11 21:12 Order name: CT; Complete Time: 21:16 EDMS 03/11 22:28 Order name: Urine Dipstick--Ancillary (enter results) 03/11 22:51 Order name: Urine Drug Screen; Complete Time: 22:58 EDMT 03/11 23:17 Order name: Urine Dipstick-Ancillary; Complete Time: 12:26 EDMT 03/11 19:15 Order name: EKG; Complete Time: 19:16 03/11 19:15 Order name: EKG - Nurse/Tech; Complete Time: 20:25 03/11 19:15 Order name: IV Saline Lock; Complete Time: 19:46 03/11 19:15 Order name: Labs collected and sent; Complete Time: 19:46 03/11 19:15 Order name: Urine Dipstick-Ancillary (obtain specimen); Complete Time: 22:23 03/12 12:33 Order name: Diet Regular; Complete Time: 12:34 aj1 Administered Medications: 19:58 Drug: [place] 5 mg-325 mg 1 tabs Route: PO; jd3 22:23 Follow up: Response: No adverse reaction jd3 23:29 Drug: Rocephin - (cefTRIAXone) 1 grams Route: IVPB; Infused Over: 30 mins; Site: right jd3 antecubital; 23:53 Follow up: Response: No adverse reaction; IV Status: Completed infusion jd3 23:53 Not Given (Physician Discretion): Ativan 1 mg PO once jd3 03/12 02:06 Not Given (Patient Refused): Ativan 0.5 mg IVP once mg2 02:07 Not Given (Patient Refused): SEROquel 25 mg PO once mg2 02:07 Not Given (Patient Refused): Ativan 0.5 mg IVP once mg2 05:00 Drug: Ativan 1 mg Route: PO; rr5 06:55 Follow up: Response: No adverse reaction rr5 05:00 Drug: SEROquel 25 mg Route: PO; rr5 06:54 Follow up: Response: No adverse reaction rr5 12:44 Drug: Motrin 600 mg Route: PO; aj1 18:38 Follow up: Response: No adverse reaction aj1 Disposition: 03/11/18 23:21 Transfer ordered to Psych Facility. Diagnosis are Bipolar disorder, Manic episode, Suicidal ideations. - Reason for transfer: Higher level of care. - Accepting physician is Dr. Chavarria. - Condition is Stable. - Problem is new. - Symptoms have improved. Signatures: Dispatcher [employer] EDHellen Ortiz RN RN aj1 Monster Newton RN Alexandro Kwan MD MD cha Nieto, Roman, MD MD rn Starr, Gregory, MD MD gs Davies, Jonathon, RN RN jd3 Juan Troncoso RN RN rr5 Adrien Henriquez RN mg2 Corrections: (The following items were deleted from the chart) 17:07 03/11 23:21 03/11/2018 23:21 Transfer ordered to Psych Facility. Diagnosis is Bipolar rn disorder; Manic episode; Suicidal ideations. Reason for transfer: Higher level of care. Accepting physician is to psych. Condition is Stable. Problem is new. Symptoms have improved. [facility] 03/12 18:39 17:07 03/11/2018 23:21 Transfer ordered to Psych Facility. Diagnosis is Bipolar aj1 disorder; Manic episode; Suicidal ideations. Reason for transfer: Higher level of care. Accepting physician is Dr. Chavarria. Condition is Stable. Problem is new. Symptoms have improved. rn
[2018-03-11] MEDS ORDERED: CEFTRIAXONE/SWI 1gm 1 GM/10 ML SYR ONE (23:24)
[2018-03-11] MEDS ORDERED: QUETIAPINE 25 MG TAB ONE (23:40)
[2018-03-12] MEDS ORDERED: LORazepam 2 MG/ML VIAL ONE (00:44)
[2018-03-12] MEDS ORDERED: LORAZEPAM 1 MG TABLET ONE (03:50)
[2018-03-12] MEDS ORDERED: QUETIAPINE 25 MG TAB ONE (03:53)
--- NOTE | 2018-03-12 10:23 | EKG ---
Test Date: 2018-03-11 Test Time: 20:05:09 Clothes Ironer: RR MEASUREMENT RESULTS: Intervals: Rate: 81 NV: 126 QRSD: 86 QT: 424 QTc: 492 [place]: P: 49 NV: 126 QRS: 23 T: 142 INTERPRETIVE STATEMENTS: Normal sinus rhythm Left ventricular hypertrophy with repolarization abnormality Prolonged QT Abnormal ECG Compared to ECG 03/01/2018 13:48:50 Left ventricular hypertrophy now present Early repolarization now present T-wave abnormality no longer present Electronically Signed On 03-12-18 10:22:05 MANAGER TREASURY by Srinivas Trotter
[2018-03-12] MEDS ORDERED: IBUPROFEN 200 MG TAB PO ONE (12:38)
[2018-03-12] MEDS ORDERED: IBUPROFEN 400 MG TAB ONE (12:38)
== END 2018-03-12 18:39 ==
LOC: ER 17:51
DX: F30.9 Manic episode, unspecified (principal); R45.851 Suicidal ideations
CPT/HCPCS: 36415; 70450; 71260; 72125; 74177; 80048; 80076; 80307 ×8; 80320; 80329 ×2; 81003; 85025; 85610; 93005; 96365 ×2; 99285 ×2; J0696; Q9967

== ENCOUNTER 2020-01-29 19:38 | Emergency (ER) | payer OTHER ==
--- OUTSIDE RECORDS SUMMARY | 2020-01-29 19:40 | XMS REPORT | Clinical Summary ---
:1950 Author Organization [facility] Address [address] [place] [address] Care Team Providers Name Role Phone Jonah Eisenberg MD Primary Care Provider Allergies No Known Active Allergies Medications Medication Sig Dispensed Refills Start Date End Date Status levothyroxine (SYNTHROID, LEVOXYL) 0 05/27 Active 50 mcg tabletIndications: hypothyroidism Active Problems Problem Noted Date Severe bipolar I disorder, most recent episode manic, without psychotic 03/12/2018 features Medical History Medical History Date Comments Bipolar 1 disorder (HCC) Family History Medical History Relation Name Comments Bipolar disorder Daughter Relation Name Status Comments Daughter Social History Tobacco Use Types Packs/Day Years [...] six or more drinks on one occasion? No t asked Sex Assigned at Date Recorded Not on file Job Start Date Occupation Industry Not on file Not on file Not on file Last Filed Vital Signs Not on file Plan of Treatment Health Maintenance Due Date Last Done Comments BREAST CANCER SCREENING 2002 COLONOSCOPY SCREENING 2002 SHINGLES VACCINES (#1) 2002 65+ PNEUMOCOCCAL VACCINE (1 of 1 - PPSV23) 2017 INFLUENZA VACCINE 09/26/2019 Results Not on fileafter 01/28/2019 Advance Directives For more information, please contact: [phone] Type Date Recorded Patient Rad Tech Explanati on Advance Directives, Living Will and Medical Power of Dynamotor Repairer Code Status Date Activated Date Inactivated Comments Full Code 03/12/2018 10:17 PM 03/24/2018 6:05 PM Code Status decision reached by: Patient
--- OUTSIDE RECORDS SUMMARY | 2020-01-29 19:40 | XMS REPORT | Continuity of Care Document ---
:1950 Author Organization [facility] t Address [address] [place] [address] Care Team Providers Name Role Phone ISRAEL ALEJO Primary Care Physician Unavailable MICHELE WOOD JR, M.D. Attending Clinician MICHELE Noonan JR, M.D. Admitting Clinician Viv larios Problems Condition Condition Condition Status Onset Resolution Last Treating Co mments Source Name Details Category Date Date Treatment Clinician Date Severe Severe Disease Active [place] bipolar I bipolar I 1-16 Meth pete disorder, disorder, 00:00: st most most 00 recent recent episode episode manic, manic, without without psychotic psychotic features features Allergies, Adverse Reactions, Alerts This patient has no known allergies or adverse reactions. Family History Family Member Diagnosis Comments Start Date Stop Date Source Natural daughter Bipolar disorder [place] Scientologist Social History Social Habit Start Date Stop Date Quantity Comments Source History [facility] Meth odist Alcohol Std Drinks History [facility] Meth odist Alcohol Binge Sex Assigned At [facility] ethodist Tobacco use and 2018-03-26 2018-03-26 Never used [facility] ethodist exposure 00:00:00 00:00:00 Alcohol intake 2018-03-26 2018-03-26 Current [facility] thodist 00:00:00 00:00:00 non-drinker of alcohol (finding) History [facility] 2018-02-06 2018-02-06 1 [place] Meth odist Alcohol Frequency 00:00:00 00:00:00 Smoking Status Start Date Stop Date Source Never smoker [place] Methodis t Medications Ordered Filled Start Stop Current Ordering Indication Dosage Frequency Signature Comments Components Source Medication Medication Date Date Medication? Clinician (SIG) Name Name levothyroxi Yes hypothyroid Iqbal ne 02 ism Methodi (SYNTHROID, 00:00: st LEVOXYL) 50 00 mcg tablet Procedures This patient has no known procedures. Plan of Care Planned Activity Planned Date Details Comments Source Future Scheduled 2019-09-26 INFLUENZA VACCINE Hitesh ayala Scientologist Test 00:00:00 [code = INFLUENZA VACCINE] Future Scheduled 2017 65+ PNEUMOCOCCAL Iqbal Scientologist Test 00:00:00 VACCINE (1 of 1 - PPSV23) [code = 65+ PNEUMOCOCCAL VACCINE (1 of 1 - PPSV23)] Future Scheduled 2002 BREAST CANCER [facility] thodist Test 00:00:00 SCREENING [code = BREAST CANCER SCREENING] Future Scheduled 2002 COLONOSCOPY SCREENING Ho griselda Scientologist Test 00:00:00 [code = COLONOSCOPY SCREENING] Future Scheduled 2002 SHINGLES VACCINES (#1) H kenyetta Scientologist Test 00:00:00 [code = SHINGLES VACCINES (#1)] Results This patient has no known results.
[2020-01-29 20:58] LABS: Urine Blood 2+ (NEG); Urine Glucose NEGATIVE (NEG); Urine Protein NEGATIVE (NEG); Urine pH 6.5 (5.0-7.0)
[2020-01-29 21:30] LABS: Urine Bacteria >50 /HPF (<20); Urine Mucus 1+ /HPF (NONE SEEN)
--- NOTE | 2020-01-29 21:54 | ER ---
Nurse's Notes [facility] Name: Luan Echols Age: 69 yrs Sex: Female : 1950 Arrival Date: 01/29/2020 Time: 19:39 Bed Hall20 Private MD: Diagnosis: Urinary tract infection, site not specified Presentation: 01/28 20:07 Chief complaint: Patient states: Pain with urination, some blood noted that began lp1 today; Reports testing positive for COVID 2 days ago, positive as well; Daughter reports patient in manic state, hx of Bipolar disorder. Coronavirus screen: Client reports previous positive COVID test result. Date of collection: January 27, 2020. Ebola Screen: No symptoms or risks identified at this time. Risk Assessment: Do you want to hurt yourself or someone else? Patient reports no desire to harm self or others. Onset of symptoms was January 29, 2020. 20:07 Method Of Arrival: Ambulatory lp1 20:07 Acuity: MAGDA 3 lp1 20:17 Initial Sepsis Screen: Does the patient meet any 2 criteria? No. Patient's initial lp1 sepsis screen is negative. Does the patient have a suspected source of infection? No. Patient's initial sepsis screen is negative. Historical: - Allergies: 20:13 No Known Allergies; lp1 - Home Meds: 20:13 Effexor XR 150 mg oral cp24 once daily [Active]; Rexulti 3 mg oral tab 1 tab once daily lp1 [Active]; Lamictal 100 mg Oral tab 1 tab once daily [Active]; - PMHx: 20:13 Bipolar disorder; Depression; High Cholesterol; Hypothyroidism; lp1 - PSHx: 20:13 None; lp1 - Immunization history:: Adult Immunizations up to date. - Social history:: Smoking status: Patient denies any tobacco usage or history of. Screenin:18 Abuse screen: Denies threats or abuse. Denies injuries from another. Nutritional lp1 screening: No deficits noted. Tuberculosis screening: No symptoms or risk factors identified. 22:12 Fall Risk None identified. jb4 Assessment: 22:12 General: Appears in no apparent distress. comfortable, Behavior is calm, cooperative. jb4 Pain: Denies pain. Neuro: Level of Consciousness is awake, alert, obeys commands, Oriented to person, place, time, situation. Cardiovascular: Patient's skin is warm and dry. Respiratory: Airway is patent Respiratory effort is even, unlabored, Respiratory pattern is regular, symmetrical. GI: No signs and/or symptoms were reported involving the gastrointestinal system. : No signs and/or symptoms were reported regarding the genitourinary system. EENT: No signs and/or symptoms were reported regarding the EENT system. Derm: Skin is intact, Skin is pink, warm \T\ dry. Musculoskeletal: Circulation, motion, and sensation intact. Range of motion: intact in all extremities. Vital Signs: 20:17 BP 191 / 95; Pulse 92; Resp 18; Temp 98.4(O); Pulse Ox 97% on R/A; Weight 53.98 kg (R); lp1 Height 4 ft. 8 in. (142.24 cm); 20:17 Body Mass Index 26.68 (53.98 kg, 142.24 cm) lp1 ED Course: 19:39 Patient arrived in ED. cl3 20:09 Triage completed. lp1 20:09 Arm band placed on. lp1 21:01 H[facility] Mann [facility]-C [facility]. kb 21:01 Justus Hardy MD is Attending Physician. kb 21:53 Del Underwood, JAVIER is Primary Nurse. jb4 22:12 Patient has correct armband on for positive identification. Bed in low position. Call jb4 light in reach. Side rails up X 1. 22:12 No provider procedures requiring assistance completed. Patient did not have IV access jb4 during this emergency room visit. Administered Medications: 22:11 Drug: Augmentin 875 mg Route: PO; jb4 Outcome: 21:53 Discharge ordered by . kb 22:12 Discharged to home ambulatory, with family. jb4 22:12 Condition: stable 22:12 Discharge instructions given to patient, Instructed on discharge instructions, follow up and referral plans. medication usage, Demonstrated understanding of instructions, follow-up care, medications, Prescriptions given X 1. 22:13 Patient left the ED. jb4 Addendum: 02/02/2020 15:01 Addendum: Culture Results: Positive urine culture. No further action required. Bacteria a a5 sensitive to prescribed antibiotic. Signatures: Hui Mann FNP-C FNP-Alcira Sharpe RN RN aa5 Lauren Dyer RN RN lp1 Del Underwood RN RN jb4 Axel Queen cl3 Corrections: (The following items were deleted from the chart) 01/28 20: 20:07 Chief complaint: Patient states: Pain with urination, some blood noted that began lp1 today; lp1 : 20:07 Coronavirus screen: Client reports previous positive COVID test result. Date of lp1 collection: January 29, 2020 [facility]
--- NOTE | 2020-01-29 21:54 | EDPHYS ---
Physician Documentation [facility] Name: Luan Echols Age: 69 yrs Sex: Female : 1950 Arrival Date: 01/29/2020 Time: 19:39 Bed Hall20 Private MD: ED Physician Justus Hardy HPI: 01/28 23:07 This 69 yrs old Female presents to ER via Ambulatory with complaints of Blood kb In Urine, Covid+. 23:07 The patient presents with urinary symptoms, dysuria, hematuria. Onset: The kb symptoms/episode began/occurred today. Modifying factors: The symptoms are alleviated by nothing, the symptoms are aggravated by nothing. Associated signs and symptoms: Pertinent positives: dysuria, hematuria, urinary frequency, Pertinent negatives: fever. Severity of symptoms: At their worst the symptoms were moderate, in the emergency department the symptoms are unchanged. The patient has not experienced similar symptoms in the past. The patient has not recently seen a physician. Historical: - Allergies: 20:13 No Known Allergies; lp1 - Home Meds: 20:13 Effexor XR 150 mg oral cp24 once daily [Active]; Rexulti 3 mg oral tab 1 tab once daily lp1 [Active]; Lamictal 100 mg Oral tab 1 tab once daily [Active]; - PMHx: 20:13 Bipolar disorder; Depression; High Cholesterol; Hypothyroidism; lp1 - PSHx: 20:13 None; lp1 - Immunization history:: Adult Immunizations up to date. - Social history:: Smoking status: Patient denies any tobacco usage or history of. ROS: 23:07 Constitutional: Negative for fever, chills, and weight loss, Cardiovascular: Negative kb for chest pain, palpitations, and edema, Respiratory: Negative for shortness of breath, cough, wheezing, and pleuritic chest pain, Abdomen/GI: Negative for abdominal pain, nausea, vomiting, diarrhea, and constipation, MS/Extremity: Negative for injury and deformity, Skin: Negative for injury, rash, and discoloration, Neuro: Negative for headache, weakness, numbness, tingling, and seizure. 23:07 : Positive for urinary symptoms, urinary frequency, hematuria, burning with urination. Exam: 23:07 Constitutional: This is a well developed, well nourished patient who is awake, alert, kb and in no acute distress. Head/Face: Normocephalic, atraumatic. Chest/axilla: Normal chest wall appearance and motion. Nontender with no deformity. No lesions are appreciated. Cardiovascular: Regular rate and rhythm with a normal S1 and S2. No gallops, murmurs, or rubs. Normal PMI, no JVD. No pulse deficits. Respiratory: Lungs have equal breath sounds bilaterally, clear to auscultation and percussion. No rales, rhonchi or wheezes noted. No increased work of breathing, no retractions or nasal flaring. Abdomen/GI: Soft, non-tender, with normal bowel sounds. No distension or tympany. No guarding or rebound. No evidence of tenderness throughout. Skin: Warm, dry with normal turgor. Normal color with no rashes, no lesions, and no evidence of cellulitis. MS/ Extremity: Pulses equal, no cyanosis. Neurovascular intact. Full, normal range of motion. Neuro: Awake and alert, GCS 15, oriented to person, place, time, and situation. Cranial nerves II-XII grossly intact. Motor strength 5/5 in all extremities. Sensory grossly intact. Cerebellar exam normal. Normal gait. Vital Signs: 20:17 BP 191 / 95; Pulse 92; Resp 18; Temp 98.4(O); Pulse Ox 97% on R/A; Weight 53.98 kg (R); lp1 Height 4 ft. 8 in. (142.24 cm); 20:17 Body Mass Index 26.68 (53.98 kg, 142.24 cm) lp1 MDM: 21:42 Patient medically screened. kb 23:06 Data reviewed: vital signs, nurses notes. Data interpreted: Pulse oximetry: on room air kb is 97 %. Interpretation: normal. Counseling: I had a detailed discussion with the patient and/or guardian regarding: the historical points, exam findings, and any diagnostic results supporting the discharge/admit diagnosis, lab results, the need for outpatient follow up, a family practitioner, to return to the emergency department if symptoms worsen or persist or if there are any questions or concerns that arise at home. 01/28 20:12 Order name: Urine Microscopic Only; Complete Time: 21:34 kb 01/28 20:46 Order name: Urine Dipstick--Ancillary (enter results); Complete Time: 21:01 mw2 01/28 20:12 Order name: Urine Dipstick-Ancillary (obtain specimen); Complete Time: 21:48 kb 01/28 21:32 Order name: Urine Culture EDCT Administered Medications: 22:11 Drug: Augmentin 875 mg Route: PO; jb4 Disposition: 01/29 06:29 Co-signature as Attending Physician, Justus Hardy MD. pkl Disposition: 01/29/20 21:53 Discharged to Home. Impression: Urinary tract infection, site not specified. - Condition is Stable. - Discharge Instructions: Urinary Tract Infection, Adult, [id number]. - Prescriptions for Augmentin 875- 125 mg Oral Tablet - take 1 tablet by ORAL route every 12 hours for 10 days; 20 tablet. - Medication Reconciliation Form, Thank You Letter, Antibiotic Education, Prescription Opioid Use form. - Follow up: Emergency Department; When: As needed; Reason: Worsening of condition. Follow up: Private Physician; When: 2 - 3 days; Reason: Recheck today's complaints, Continuance of care, Re-evaluation by your physician. Signatures: Dispatcher [employer] EDCT Hui Mann, JEWELRY ENGRAVER-C JEWELRY ENGRAVER-Justus De Los Santos MD MD pkl Lauren Dyer, RN RN lp1 Del Underwood, RN RN jb4 Corrections: (The following items were deleted from the chart) 01/28 22:13 21:53 01/29/2020 21:53 Discharged to Home. Impression: Urinary tract infection, site jb4 not specified. Condition is Stable. Forms are Medication Reconciliation Form, Thank You Letter, Antibiotic Education, Prescription Opioid Use. Follow up: Emergency Department; When: As needed; Reason: Worsening of condition. Follow up: Private Physician; When: 2 - 3 days; Reason: Recheck today's complaints, Continuance of care, Re-evaluation by your physician. kb
[2020-01-29] MEDS ORDERED: AMOX/K CLAV 875 MG TAB ONE (22:16)
[2020-02-03 23:33] VITALS: BP 191/95; TEMP 98.4; O2SAT 97
== END 2020-01-29 22:13 | disposition home or self-care (01) ==
LOC: ER 19:38
DX: N39.0 Urinary tract infection, site not specified (principal); F31.9 Bipolar disorder, unspecified
CPT/HCPCS: 81003; 81015; 87077; 87086; 87088; 87186; 99283

== ENCOUNTER 2022-01-08 11:47 | Day surgery (SDC) | payer MEDICARE ==
[2022-01-08] MEDS ORDERED: PHENYLEPHRINE 10% OPTH 5ML ONE (12:00)
[2022-01-08] MEDS ORDERED: CYCLOPENTOLATE 1% OPTH 2 ML ONE (12:00)
[2022-01-08] MEDS ORDERED: LIDOCAINE HCL/PF 3.5% OPTH GEL ONE (12:01)
[2022-01-08] MEDS ORDERED: Ringers Lactate 1,000 ML IV ONE (12:01)
[2022-01-08] MEDS ORDERED: BSS OPTHALMIC SOL 15 ML OPTH ONE (12:35)
[2022-01-08] MEDS ORDERED: BUPIVACAINE 0.25% PF 10 ML VIAL ONE (12:35)
[2022-01-08] MEDS ORDERED: EPINEPHRINE/PF 1 MG/ML AMP ONE (12:36)
[2022-01-08] MEDS ORDERED: MOXIFLOXACIN HCL 10 DROPS/ML **OR USE OPTH ONE (12:36)
[2022-01-08] MEDS ORDERED: LIDOCAINE 1% MPF 2 ML AMPULE ONE (12:36)
[2022-01-08] MEDS ORDERED: LIDOCAINE 2% W/EPI 1:200,000 MPF 20 ML VIAL IM ONE (12:36)
[2022-01-08] MEDS ORDERED: BALANCED SALT IRRIG PLAIN 500 ML IRR ONE (12:37)
[2022-01-08] MEDS ORDERED: DUOVISC 1 KIT OPTH ONE (12:37)
[2022-01-08] MEDS ORDERED: POVIDONE-IODINE 5% EYE DROPS ONE (12:40)
[2022-01-08] MEDS ORDERED: TRYPAN BLUE 0.5 ML SYR OPTH ONE (13:08)
[2022-01-08] MEDS ORDERED: MIDAZOLAM HCL 2 MG/2 ML INJ ONE (14:45)
[2022-01-08] MEDS ORDERED: FENTANYL CITR 100 MCG/2 ML ONE (14:45)
[2022-01-08] MEDS ORDERED: LIDOCAINE HCL/PF 3.5% OPTH GEL OPTH ONE (14:55)
[2022-01-08] MEDS ORDERED: TETRACAINE HCL 0.5% 4ML OPTH ONE (14:57)
[2022-01-08 16:21] VITALS: O2SAT 97
[2022-01-08 16:25] VITALS: BP 174/79; TEMP 97.9
--- NOTE | 2022-01-09 03:39 | OP ---
Date of Procedure: 01/08/2022 Surgeon: Kari Magana MD Anesthesiologist: Jair Burger CRNA and Miriam Ruiz CRNA. Preoperative Diagnosis: Combined form of cataract, right eye. Operation Performed: Phacoemulsification with intraocular lens implant, right eye. Anesthesia: Topical anesthesia. Anesthesia for cataract surgery. Complications: None. Description Of Procedure: In the operating room the patient was prepped and draped in the usual sterile fashion for ophthalmic surgery. A lid speculum was placed in the right eye. Two paracentesis sites were made superiorly and inferiorly in the limbal cornea. Preservative free lidocaine 1% then Viscoat were placed in the anterior chamber. A keratome was used to enter the anterior chamber. A 360 degree capsulotomy was performed with utrata forceps. The lens was hydrodissected with BSS and rotated freely. The lens was removed with a chop technique. 2.02 phaco CDE was used to remove the lens. Residual cortex was removed with the irrigation and aspiration. Provisc was placed in the capsular bag. A DCB00, +21.5 lens was placed in the capsular bag without complications. Irrigation and aspiration was used to remove residual viscoelastic. The paracentesis sites were hydrated with BSS. The wound and paracentesis sites were inspected and found to be watertight. Vigamox 0.07 cc was placed intracamerally at the end of the procedure. The eye was patched with a clear shield. The patient was returned to day surgery in good condition. Discharge Instructions: Ms. Echlos is discharged to home in good condition and is to follow up with Dr. Magana in the morning. MGINON/FATIMAH Voice ID: [id number] Report ID: [id number] CATHLEEN
== END 2022-01-08 16:24 | disposition home or self-care (01) ==
LOC: OR 11:47
PROVIDERS: ATTEND Ophthalmology Retina Specialist
PROC: 08RJ3JZ Replacement of Right Lens with Synthetic Substitute, Percutaneous Approach (ICD-10-PCS; principal; 2022-01-08 14:00)
DX: H25.811 Combined forms of age-related cataract, right eye (principal)
CPT/HCPCS: 66984; J0171; J2250; J3010; J7120

== ENCOUNTER 2022-04-16 12:04 | Day surgery (SDC) | payer MEDICARE ==
[2022-04-16] MEDS ORDERED: CYCLOPENTOLATE 1% OPTH 2 ML ONE (12:26)
[2022-04-16] MEDS ORDERED: PHENYLEPHRINE 10% OPTH 5ML ONE (12:26)
[2022-04-16] MEDS ORDERED: NA CHLORIDE 0.9% 500 ML ONE (12:27)
[2022-04-16 12:43] VITALS: O2SAT 100
[2022-04-16] MEDS ORDERED: BSS OPTHALMIC SOL 15 ML OPTH ONE (13:44)
[2022-04-16] MEDS ORDERED: TETRACAINE HCL 0.5% 4ML OPTH ONE (13:44)
[2022-04-16] MEDS ORDERED: TRYPAN BLUE 0.5 ML SYR OPTH ONE (13:46)
[2022-04-16] MEDS ORDERED: POVIDONE-IODINE 5% EYE DROPS ONE (13:47)
[2022-04-16] MEDS: LIDOCAINE HCL/PF 3.5% OPTH GEL ONE ×2 (14:02→15:25)
[2022-04-16] MEDS ORDERED: FENTANYL CITR 100 MCG/2 ML ONE (14:19)
[2022-04-16] MEDS ORDERED: MIDAZOLAM HCL 2 MG/2 ML INJ ONE (14:19)
[2022-04-16] MEDS: BALANCED SALT IRRIG PLAIN 500 ML IRR ONE ×2 (14:22→15:30)
[2022-04-16] MEDS: EPINEPHRINE/PF 1 MG/ML AMP ONE ×2 (14:23→15:30)
[2022-04-16] MEDS: DUOVISC 1 KIT OPTH ONE ×2 (14:23→15:33)
[2022-04-16] MEDS: LIDOCAINE 1% MPF 2 ML AMPULE ONE ×2 (14:41→15:30)
[2022-04-16] MEDS ORDERED: MOXIFLOXACIN HCL 10 DROPS/ML **OR USE OPTH ONE (14:44)
[2022-04-16 18:00] VITALS: BP 155/84; TEMP 97.4
--- NOTE | 2022-04-17 01:29 | OP ---
Date of Procedure: 04/16/2022 Surgeon: Kari Magana MD Anesthesiologist: Jonathan Oneal M.D. Preoperative Diagnoses: 1. Nuclear sclerotic cataract, left eye. 2. Moderate low-tension glaucoma, left eye. Operation Performed: Phacoemulsification with intraocular lens implant, left eye and insertion of i-Stent. Anesthesia: For cataract surgery. Complications: None. Description Of Procedure: In day surgery, Akten was placed in the eye. In the operating room the patient was prepped and draped in the usual sterile fashion for ophthalmic surgery. A lid speculum was placed in the left eye. Two paracentesis sites were made superiorly and inferiorly in the limbal cornea. Viscoat was placed in the anterior chamber and a keratome was used to enter the anterior chamber. A 360 degree capsulotomy was performed with utrata forceps. The lens was hydrodissected with BSS and rotated freely. The lens was removed with a chop technique. 6.0 phaco CDE was used to remove the lens. Residual cortex was removed with the irrigation and aspiration. Provisc was placed in the capsular bag. A DCB00 +21.5 lens was placed in the capsular bag without complications. Irrigation and aspiration was used to remove residual viscoelastic. The paracentesis sites were hydrated with BSS. The wound and paracentesis sites were inspected and found to be watertight. Vigamox 0.07 cc was placed intracamerally at the end of the procedure. The eye was irrigated with balanced salt solution. The eye was patched with a soft cotton patch and Allen metal shield. The patient was returned to day surgery in good condition. Comments: One i-Stent was placed in the angle. Discharge Instructions: Ms. Echols is discharged to home in good condition and is to follow up with Dr. Magana in the morning. MIGNON/FATIMAH Voice ID: [id number] Report ID: [id number] CATHLEEN
== END 2022-04-16 17:20 | disposition home or self-care (01) ==
LOC: OR 12:04
PROVIDERS: ADMIT Ophthalmology Retina Specialist; ATTEND Ophthalmology Retina Specialist
PROC: 08RK3JZ Replacement of Left Lens with Synthetic Substitute, Percutaneous Approach (ICD-10-PCS; principal; 2022-04-16 14:00)
DX: H25.12 Age-related nuclear cataract, left eye (principal); H25.012 Cortical age-related cataract, left eye
CPT/HCPCS: 66984; J0171; J2250; J3010; J7040

== ENCOUNTER 2024-06-26 14:00 | Emergency (ER) | payer MEDICARE, OTHER ==
[2024-06-26] MEDS ORDERED: KETOROLAC 30 MG/ML INJ ONE (14:15)
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
[2024-06-26 15:56] VITALS: BP 144/73; TEMP 98; O2SAT 96
== END 2024-06-26 15:26 | disposition home or self-care (01) ==
LOC: ER 14:00
DX: S13.4XXA Sprain of ligaments of cervical spine, initial encounter (principal); V49.49XA Driver injured in collision with other motor vehicles in traffic accident, initial encounter
CPT/HCPCS: 96372; 99284